=== PATIENT | female | born 1955 | race Caucasian/White ===

== ENCOUNTER 2018-08-29 11:29 | Emergency (ER) | payer MEDICARE ==
[~2018-08-29] VITALS: Ht 160 cm; Wt 59.0 kg
== END 2018-08-29 13:32 | disposition home or self-care (01) ==
LOC: ER 11:29
DX: S89.392A Other physeal fracture of lower end of left fibula, initial encounter for closed fracture (principal); S89.192A Other physeal fracture of lower end of left tibia, initial encounter for closed fracture; Z87.891 Personal history of nicotine dependence; W06.XXXA Fall from bed, initial encounter
CPT/HCPCS: 29515; 73610; 99283-25

== ENCOUNTER 2018-08-31 08:44 | Inpatient (IN) | payer MEDICARE ==
[~2018-08-31] VITALS: Ht 160 cm; Wt 76.8 kg
[2018-08-31 09:08] LABS: Hematocrit 45.1 % (33.0-51.0); Hemoglobin 14.8 g/dL (11.5-16.0); Mean Corpuscular HGB Conc 32.8 g/dL (31.5-36.5); Mean Corpuscular Volume 95 fL (80-100); Mean Platelet Volume 10.1 fL (9.1-12.4); Platelet Count 199 K/mm3 (150-400); RDW Coefficient Variation 12.9 % (11.7-14.2); RDW Standard Deviation 45.1 fL (35.1-46.3); Red Blood Cell Count 4.77 M/mm3 (3.80-5.20); White Blood Cell Count 3.14 K/mm3 (4.00-11.30)
[2018-08-31] MEDS ORDERED: Mobic15 MG PO (09:08)
[2018-08-31] MEDS ORDERED: MORP15ER PO (09:08)
[2018-08-31] MEDS ORDERED: GABA600 PO (09:09)
[2018-08-31] MEDS ORDERED: LIDOCAINE1 EACH (09:09)
[2018-08-31] MEDS ORDERED: Zanaflex4 MG PO (09:09)
[2018-08-31 09:15] LABS: Base Excess Venous -9.4 mmol/L; Bicarbonate Venous 16.5 mmol/L (24.0-30.0); PCO2 Venous 46.2 mmHg (38-42); PO2 Venous 40.9 mmHg (38-42); pH Blood Venous 7.21 (7.34-7.37)
[2018-08-31 09:33] LABS: Albumin, Blood 2.7 g/dL (3.4-5.0); Albumin/Globulin Ratio 0.6 (0.8-1.8); Bilirubin, Total 0.7 mg/dL (0.1-1.0); Bun/Creatinine Ratio 9.9 (12.0-20.0); Calcium, Blood 8.3 mg/dL (8.5-10.1); Creatinine, Blood 2.12 mg/dL (0.40-1.00); Globulin, Blood 4.6 g/dL (2.2-4.0); Potassium, Blood 2.6 mmol/L (3.5-5.5); Total Protein, Blood 7.3 g/dL (6.4-8.2); Troponin I 0.237 ng/mL (0.000-0.040)
[2018-08-31 09:46] LABS: Source, Urine Catheter
[2018-08-31 09:47] LABS: BAND PERCENT MAN 16 % (0-8); BASOPHILS PERCENT MAN 0 % (0-2); EOSINOPHILS PERCENT MAN 0 % (0-6); LYMPHOCYTES ABSOLUTE MAN 1.25 K/mm3 (0.84-5.20); LYMPHOCYTES PERCENT MAN 40 % (21-46); METAMYELOCYTE ABSOLUTE MAN 0.09 K/mm3 (0.00-0.00); METAMYELOCYTE PERCENT MAN 3 % (0-0); MONOCYTES ABSOLUTE MAN 0.12 K/mm3 (0.16-1.47); MONOCYTES PERCENT MAN 4 % (4-13); MYELOCYTE ABSOLUTE MAN 0.06 K/mm3 (0.00-0.00); MYELOCYTE PERCENT MAN 2 % (0-0); SEG NEUTROPHILS PERCENT MAN 35 % (41-73); TOTAL CELLS COUNTED 100
[2018-08-31 09:47] LABS: Influenza A Positive (NEGATIVE); Influenza B Negative (NEGATIVE)
[2018-08-31 09:51] LABS: Appearance, Urine Hazy (Clear); Bilirubin, Urine Neg (Neg); Blood, Urine 5+ (Neg); Color, Urine Yellow (P-Yellow); Glucose Qualitative, Urine 2+ (Neg); Ketones, Urine 2+ (Neg); Leukocyte Esterase, Urine 1+ (Neg); Nitrite, Urine Neg (Neg); Protein, Urine 4+ (Neg); Urobilinogen, Urine NORM (Normal)
[2018-08-31 10:33] LABS: White Blood Cells, Urine 0-2 /hpf (0-5)
[2018-08-31 10:34] LABS: Amorphous Heavy (0-Heavy); Bacteria Not Seen /hpf; Squamous Epithelial Cells Not Seen /hpf (Few)
[2018-08-31 10:36] LABS: U Amphetamine Screen Not Detected; U Barbituate Screen Not Detected; U Benzodiazapine Screen Not Detected; U Buprenorphine Screen Not Detected; U Cannabinoids Screen Not Detected; U Cocaine Screen Not Detected; U Methadone Screen Not Detected; U Methamphetamine Screen Not Detected; U Opiates Screen DETECTED; U Oxycodone Screen Not Detected; U Phencyclidine Screen Not Detected; U Propoxyphene Screen Not Detected
[2018-08-31 10:55] LABS: PCO2 Arterial 41.3 mmHg (35-45); PO2 Arterial 44 mmHg (80-100); pH Blood Arterial 7.23 (7.35-7.45)
[2018-08-31 14:03] LABS: PCO2 Arterial 38.1 mmHg (35-45); PO2 Arterial 107 mmHg (80-100); pH Blood Arterial 7.29 (7.35-7.45)
[2018-08-31 16:23] LABS: Albumin, Blood 1.8 g/dL (3.4-5.0); Anion Gap 10 mmol/L (6-16); Blood Urea Nitrogen 25 mg/dL (8-24); Bun/Creatinine Ratio 11.8 (12.0-20.0); CO2, Blood 19 mmol/L (21-32); Calcium, Blood 6.9 mg/dL (8.5-10.1); Chloride, Blood 111 mmol/L (98-108); Creatinine, Blood 2.11 mg/dL (0.40-1.00); Glomerular Filtration Rate 25 (60-); Glucose, Blood 229 mg/dL (70-99); Phosphorus, Blood 2.5 mg/dL (2.5-4.9); Potassium, Blood 3.9 mmol/L (3.5-5.5); Sodium, Blood 140 mmol/L (136-145)
[2018-08-31 16:25] LABS: International Normalized Ratio 1.36
--- NOTE | 2018-08-31 20:45 | NUR ---
PT ADMITTED TO ICU AT 1230 FROM ER FOR RESP FAILURE W POSSIBLE SEPSIS. DR AGUILAR IN ICU UNIT AND NOTIFIED OF CONSULT. PT ARRIVED ON MECH VENT UNRESPONSIVE AND ON VERSED GTT AT 2, LEVOPHED AT 11MCG TO RIGHT IJ. PUPILS PINPOINT. ACKERMAN TEMP PROBE READ 99. AC 16, TV 350, FIO2 AT 100%, PEEP 10. SKIN INTACT. SOFT CAST TO LEFT LOWER EXTREMITY. CAST REMOVED TO PREFORM ORDERED DOPPLER, CIRC CHECK, AND SKIN CHECK. SKIN UNDER BOOT INTACT. PULSE TO LEFT PT VIA DOPPLER ONLY, UNABLE TO GET DOPPLER OF LEFT DP, DR AGUILAR AT BEDSIDE. LEVOPHED TITATED UP TO 25MCG ALONG WITH VASOPRESSIN GTT TO KEEP MAP >65 FROM ADMIT TO 1335. AROUND 1335 UNABLE TO HEAR MANUAL BP READING, DOPPLER SHOWING BETWEEN 70/D TO 110/D. DR AGUILAR NOTIFIED AND ART LINE PLACED BY DR AGUILAR AT 1515. AT 1515 ART LINE ZEROED AND SHOWING SBP 140'S. LEVOPHED TITRATED DOWN TO 10MCG AND PLACED ON STANBY ALONG WITH VASOPRESSIN AT 1530. PT RECEIVED 2 LITERS BOLUS IN ER, A 3RD LITER OF LR BOLUS WAS STARTED ON ADMIT. PT 4TH BOLUS WAS CHANGED TO 125CC/HR AFTER ART LINE SHOWED SUFFICIANT BP READINGS. PT URINE OUTPUT AVERAGED BETWEEN 10-15CC/HR; DR AGUILAR AWARE. PT TAKEN TO CT FOR CT OF HEAD AFTER BP STABLE. HEAPARIN GTT TO BE STARTED AFTER CT OF HEAD CLEAR. PHARMACY NOTIFIED TO START HEPARIN GTT WELL NIGHT RN. DOPPLER WAS COMPLETED TOWARDS END OF SHIFT AND WAS NEGATIVE FOR CLOTS. OG PLACED ON ADMIT WITH SMALL AMT OF BILE SUCTIONS; OG THEN CLAMPED. PT'S [employer] CAME IN TO SEE PT AROUND 1400. LIMITED HISTORY OBTAINED. KI (GUNJAN) STATED THAT HE AND THE PT LIVED TOGETHER AND THAT HE WAS MORE OF A CARE GIVEN FOR HER SHE WAS VERY DISABLED DUE TO HER BACK PAIN. HE STATED THAT PT C/O BEING UNABLE TWO WALK TO DAYS AGO, AND ON SECOND DAY HE TOOK HER TO ER WHERE SHE WAS DX W LEFT TIB/FIB FX. THIS AM HE FOUND HER MINIMALLY RESPONSIVE AND SOB, AND THEN CALLED EMS. PT HAS ONE CHILD A DAUGHTER WHO LIVES OUT OF STATE AND HAS BEEN NOTIFIED. NUMBER HAS BEEN RECORDED ON [employer] BP DID START TO TREND DOWN TOWARD END OF SHIFT, LEVOPHED RESTARTED AT 2MCG W FARM CONSULTANT AROUND 1900. PT WOKE UP AT 1800, WAS ABLE TO NOD HEAD APPROPRIATELY TO QUESTIONS AND TRACTOR MECHANIC HELPER/FOLLOWING SIMPLE COMMANDS. PT NODED HEAD YES TO PAIN AND WAS TEARFUL. DR AGUILAR NOTIFIED, PROPOFOL STARTED AT 15MCG. FENTANYL ORDERED WELL PRN.
--- NOTE | 2018-09-01 00:29 | NUR ---
PATIENT REMAINS OFF PROPOFOL, SLIGHT SQUEEZE TO HAND BUT NOT ALWAYS TO DIRECTIONS. LEVOPHED AT 5MCG. ART LINE REMAINS IN PLACE WITH GOOD WAVEFORM. MANAGER MULTICULTURAL OCCASIONALLY SHOWING IRREGULAR RHYTHM, WITH PAC'S. TYLENOL GIVEN FOR INCREASED TEMP.
[2018-09-01 04:37] LABS: BASOPHILS ABSOLUTE AUTO 0.03 K/mm3 (0.00-0.23); BASOPHILS PERCENT AUTO 1 % (0-2); Hematocrit 31.2 % (33.0-51.0); Hemoglobin 10.3 g/dL (11.5-16.0); Mean Corpuscular HGB 31.1 pg (26.0-34.0); Mean Corpuscular Volume 94 fL (80-100); Platelet Count 108 K/mm3 (150-400); RDW Coefficient Variation 13.4 % (11.7-14.2); RDW Standard Deviation 46.7 fL (35.1-46.3); Red Blood Cell Count 3.31 M/mm3 (3.80-5.20); White Blood Cell Count 3.08 K/mm3 (4.00-11.30)
[2018-09-01 04:41] LABS: EOSINOPHILS ABSOLUTE AUTO 0.01 K/mm3 (0.00-0.68); EOSINOPHILS PERCENT AUTO 0 % (0-6); IMMATURE GRAN ABSOLUTE AUTO 0.04 K/mm3 (0.00-0.10); IMMATURE GRAN PERCENT AUTO 1 % (0-1); LYMPHOCYTES ABSOLUTE AUTO 0.89 K/mm3 (0.84-5.20); LYMPHOCYTES PERCENT AUTO 29 % (21-46); MONOCYTES ABSOLUTE AUTO 0.05 K/mm3 (0.16-1.47); MONOCYTES PERCENT AUTO 2 % (4-13); NEUTROPHILS ABSOLUTE AUTO 2.06 K/mm3 (1.96-9.15); NEUTROPHILS PERCENT AUTO 67 % (41-73)
[2018-09-01 04:50] LABS: Calcium, Blood 8.1 mg/dL (8.5-10.1); Creatinine, Blood 2.92 mg/dL (0.40-1.00); Magnesium, Blood 1.5 mg/dL (1.6-2.4); Phosphorus, Blood 3.6 mg/dL (2.5-4.9); Potassium, Blood 4.3 mmol/L (3.5-5.5)
[2018-09-01 04:55] LABS: BAND PERCENT MAN 37 % (0-8); BASOPHILS PERCENT MAN 0 % (0-2); EOSINOPHILS PERCENT MAN 0 % (0-6); LYMPHOCYTES ABSOLUTE MAN 1.04 K/mm3 (0.84-5.20); LYMPHOCYTES PERCENT MAN 34 % (21-46); METAMYELOCYTE ABSOLUTE MAN 0.24 K/mm3 (0.00-0.00); METAMYELOCYTE PERCENT MAN 8 % (0-0); MONOCYTES ABSOLUTE MAN 0.09 K/mm3 (0.16-1.47); MONOCYTES PERCENT MAN 3 % (4-13); NEUTROPHILS ABSOLUTE MAN 1.69 K/mm3 (1.96-9.15); SEG NEUTROPHILS PERCENT MAN 18 % (41-73); TOTAL CELLS COUNTED 100
[2018-09-01 05:45] LABS: PCO2 Arterial 32.4 mmHg (35-45); PO2 Arterial 75.3 mmHg (80-100)
--- NOTE | 2018-09-01 06:53 | NUR ---
SUMMARY PATIENT REMAINS INTUBATED WITH PROPOFOL OFF AT THIS TIME. PATIENT CALM FOLLOWING SIMPLE DIRECTIONS, OPENS EYES SLIGHTLY. FALLING BACK TO SLEEP WHEN UNDISTURBED. VENT SET AT AC 16, TV 350, PEEP 10, FIO2 65%. ART LINE TO RIGHT GROIN WITH GOOD WAVEFORM, LEVOPHED TITRATED T/O NIGHT FOR HYPOTENSION, NOW AT 6 MCG. HEPARIN DRIP WAS OFF FOR 2 HRS PER PHARMACY NOW INFUSING 11 UNITS. SPLINT REMAINS IN PLACE BUT OPEN.
--- NOTE | 2018-09-01 09:25 | NUR ---
PT ASSESSED THIS AM AT 0730. PT SLEEPING ON MECH VENT. PT AROUSES TO TOUCH AND NOXIOUS STIMULI, FOLLOWS DIRECTIONS, SLIGHTLY AGITATED, TEARFUL, NODS HEAD YES TO ANXIETY AND PAIN. PROPOFOL STARTED AT 15MCG. LEVOPHED DECREASED FROM 6MCG TO 4MCG. OPENED SOFT CAST TO LEFT LOWER EXTREMETY. SOME EDEMA NOTED TO LEFT FOOT 1+. PULSES IMPROVED TO BLE. 1+ DP/PT BILAT. BLE PINK AND WARM W GOOD CAP REFILL. PT'S EXHUSBAND IN TODAY AND GIVEN UPDATE. DR BURKS IN TODAY AND GIVEN UPDATE. ORTHO AND CARDIOLOGY CONSULTED. MAG REPLACED. ECHO AND RENAL DOPPLER COMPLETED. DR AGUILAR IN TO SE PT THIS AM. NOTIFIED OF POS BLOOD CX, UPDATED, AND NOTIFIED OF U/O AT 10CC/HR. SEE NEW ORDERS.
--- NOTE | 2018-09-01 11:17 | NUR ---
DR RODRIGUEZ'S OFFICE CALLED FR CONSULT. SPOKE W DR QUINTANA DIRECTLY FOR CARDIOLOGY CONSULT. 2ND SET OF BLOOD CX POSITIVE;DR AGUILAR NOTIFIED; VANCO PER PHARMACY ORDERED
--- NOTE | 2018-09-01 12:31 | NUR ---
DR RODRIGUEZ IN TO SEE PT. XAVIRE WRAP PLACED OVER SPLINT. PT WILL REQUIRE SURGERY WITHIN 2-3 WEEKS WHEN MEDICALLY STABLE PER MD.
--- NOTE | 2018-09-01 13:45 | NUR ---
DR QUINTANA IN TO SEE PT, EKG ORDERED. WILL MANAGE MEDICALLY FOR NOW.
--- NOTE | 2018-09-01 14:00 | NUR ---
CRITICAL HIGH PTT CALLED TO PATRICK/PHARMACY. HEPARIN DECREASED TO 10 UNITS/KG/HR.
--- NOTE | 2018-09-01 15:01 | NUR ---
PT TRANSFERED TO PCU 5 WITH HOME VENT ON 3L O2 BLEED IN. LEFT HAND IV DC'D; NOT PATENT. FRANCA IV PATENT AND FLUSHED. URINE EMPTIED AND CHARTED. PT GIVEN ATIVAN 1MG PO IN ATICIPATION OF INNER CANNULA CHANGE TO BE DONE BY RT SHORTLY. REPORT GIVEN TO BETSY KIRSHNAMURTHY
--- NOTE | 2018-09-01 16:08 | NUR ---
PT URINE OUTPUT SLOWLY IMPROVING. LEVOPHED PLACED ON STANBY FOR SBP 120-130'S KI AT BEDSIDE, UPDATED.
--- NOTE | 2018-09-01 20:45 | NUR ---
PATIENT INTUBATED AND SEDATED WITH PROPOFOL. VENT SET AT AC 16, TV 350, PEEP 10, FIO2 45%. OG IN PLACE WITH TUBE FEEDING AT GOAL RATE OF 30/HR WITH RESIDUAL OF 111 CC REFED, WILL CONTINUE TO MONITOR RESIDUAL. PATIENT KEEPS EYES CLOSED, FOLLOWING SIMPLE DIRECTIONS, GRIMACING WITH ORAL CARE AND REPOSITIONING, RELAXING WHEN UNDISTURBED. BILAT WRIST RESTRAINTS REMAIN IN PLACE DUE TO UNPREDICTABLE SEDATION AND BEHAVIOR. PATIENT CONTINUES IN SINUS TACH UP TO 130'S AFTER REPOSITIONING OCCASIONALLY HAVING PAC. LEVOPHED REMAINS OFF. ART LINE IN PLACE TO RIGHT GROIN WITH GOOD WAVE FORM. LINE ZEROED.
[2018-09-02 04:45] LABS: Hematocrit 24.7 % (33.0-51.0); Hemoglobin 8.3 g/dL (11.5-16.0); Mean Corpuscular HGB 31.6 pg (26.0-34.0); Mean Corpuscular HGB Conc 33.6 g/dL (31.5-36.5); Mean Corpuscular Volume 94 fL (80-100); Mean Platelet Volume 10.7 fL (9.1-12.4); Platelet Count 83 K/mm3 (150-400); RDW Coefficient Variation 13.8 % (11.7-14.2); RDW Standard Deviation 47.7 fL (35.1-46.3); Red Blood Cell Count 2.63 M/mm3 (3.80-5.20); White Blood Cell Count 2.87 K/mm3 (4.00-11.30)
[2018-09-02 05:04] LABS: PCO2 Arterial 34.4 mmHg (35-45); PO2 Arterial 76.4 mmHg (80-100); pH Blood Arterial 7.31 (7.35-7.45)
[2018-09-02 05:05] LABS: Albumin, Blood 1.4 g/dL (3.4-5.0); Anion Gap 11 mmol/L (6-16); Blood Urea Nitrogen 44 mg/dL (8-24); Bun/Creatinine Ratio 12.2 (12.0-20.0); CO2, Blood 18 mmol/L (21-32); Calcium, Blood 8.2 mg/dL (8.5-10.1); Chloride, Blood 108 mmol/L (98-108); Creatinine, Blood 3.62 mg/dL (0.40-1.00); Glomerular Filtration Rate 13 (60-); Glucose, Blood 154 mg/dL (70-99); Magnesium, Blood 1.7 mg/dL (1.6-2.4); Phosphorus, Blood 3.4 mg/dL (2.5-4.9); Potassium, Blood 4.4 mmol/L (3.5-5.5); Sodium, Blood 137 mmol/L (136-145); Vancomycin, Random 14.3 ug/mL
[2018-09-02 05:26] LABS: BAND PERCENT MAN 9 % (0-8); BASOPHILS PERCENT MAN 0 % (0-2); EOSINOPHILS ABSOLUTE MAN 0.02 K/mm3 (0.00-0.68); EOSINOPHILS PERCENT MAN 1 % (0-6); LYMPHOCYTES ABSOLUTE MAN 0.63 K/mm3 (0.84-5.20); LYMPHOCYTES PERCENT MAN 22 % (21-46); METAMYELOCYTE ABSOLUTE MAN 0.02 K/mm3 (0.00-0.00); METAMYELOCYTE PERCENT MAN 1 % (0-0); MONOCYTES ABSOLUTE MAN 0.11 K/mm3 (0.16-1.47); MONOCYTES PERCENT MAN 4 % (4-13); MYELOCYTE ABSOLUTE MAN 0.02 K/mm3 (0.00-0.00); MYELOCYTE PERCENT MAN 1 % (0-0); NEUTROPHILS ABSOLUTE MAN 2.03 K/mm3 (1.96-9.15); SEG NEUTROPHILS PERCENT MAN 62 % (41-73); TOTAL CELLS COUNTED 100
[2018-09-02 05:30] LABS: Troponin I 0.508 ng/mL (0.000-0.040)
--- NOTE | 2018-09-02 05:56 | NUR ---
SUMMARY PATIENT REMAINS INTUBATED AND SEDATED WITH PROPOFOL AT 15 MCG. PATIENT AWAKENS TO STIMULI, FOLLOWING SIMPLE DIRECTIONS. ART LINE REMAINS IN PLACE TO RIGHT GROIN WITH GOOD WAVEFORM T/O NIGHT. PATIENT REMAINS OFF LEVOPHED T/O THE NIGHT. VENT SETTINGS REMAIN UNCHANGED T/O NIGHT. PATIENT INCONT OF LARGE LIQUID BM X1 DURING THE NIGHT.
--- NOTE | 2018-09-02 08:00 | NUR ---
ASSUMED CARE PT. REMAINS SEDATED AND INTUBATED THIS AM. PT. VENT SETTINGS OF AC 16, TV 350, PEEP 10, 50% FIO2. PT. HAS FACIAL GRIMACE WITH REPOSITIONING. PT. HR IN THE 150S UP TO 170S THIS AM, DR. LINARES NOTIFIED OF THIS. PT. HAS ART LINE IN RIGHT GROIN; ALONG WITH CENTRAL LINE AND SAFESET IN PLACE TO RIGHT IJ. PT. CONTINUES ON HEPARIN GTT SEE FLOWSHEET FOR TITRATIONS OF PROPOFOL AND ON LR 125ML/HR. MED FOR PAIN. BILAT WRIST RESTRAINTS IN PLCE ALONG WITH ACKERMAN DRAINING TO GRAVITY. PT. HAS SOFT CAST TO LEFT LEFT; PULSES NOTED TO DISTAL TOES.
--- NOTE | 2018-09-02 09:46 | NUR ---
LOW BP/ ELEVATED HR SPOKE WITH DR. LINARES AT THIS TIME LEVOPHED GTT RESTARTED; INFUSING AT 6MCG/KG/MIN.
--- NOTE | 2018-09-02 10:48 | NUR ---
PT CONTINUES WITH ELEVATED HR IRREGULAR AND IN THE 140S-150S. EKG DONE.
--- NOTE | 2018-09-02 12:00 | NUR ---
AMIODARONE GTT STARTED BOLUS GIVEN THEN INFUSION STARTED PER DR. SORENSEN.
--- NOTE | 2018-09-02 17:47 | NUR ---
SHIFT SUMMARY PT. REMAINS SEDATED AND INTUBATED T/O SHIFT. CURRENTLY ON AMIO GTT AT 1MG/MIN, REMAINS IN AFIB. PT. HEPARIN GTT STOPPED THIS SHIFT FOR DROP IN PLATELETS AND WILL REASSESS TOMORROW TO START SUBCU HEPARIN PER DR. LINARES. PT. STARTED ON LEVOPHED TODAY FOR HYPOTENSION. ART LINE AND CENTRAL LINE REMAIN IN PLACE. TF RESIDUALS OF LOW 100S TODAY REFED. PT. ACKERMAN REMAINS IN PLACE WITH 300CC OUTPUT TODAY. VSS AT THIS TIME. REPORT TO ONCOMING RN.
--- NOTE | 2018-09-02 19:15 | NUR ---
ASSUMED PT CARE; BEDSIDE REPORT GIVEN PT INTUBATED AND SEDATED; PROPOFOL AT 35MCG/KG. VENT SETTINGS: AC 16; TV 350; FIO2 50%; PEEP 10 WITH OXYGEN SATURATIONS 93%. PT APPEARS VERY EDEMATOUS WITH MINIMAL PITTING EDEMA, BUT MAINLY TIGHT SKIN; OLD VENIPUNCTURE SITES APPEAR TO BE WEEPING, WELL OLD ABRASION TO RIGHT INNER ANKLE ALSO APPEARS TO BE WEEPING. PIVOT 1.5 INFUSING AT GOAL OF 30CC/HR. ACKERMAN CATH IS PATENT AND DRAINING TO GRAVITY; CLEAR, YELLOW URINE. RIGHT FEMORAL ARTERIAL LINE DRESSING APPEARS CDI; SITE WNL. CENTRAL LINE TO RIGHT IJ INFUSING PROPOFOL, NS TKO, AND AMIODARONE AT 0.5MG/MIN. BILAT TIBIAL AND PEDAL PULSES ARE FAINT, BUT PALPABLE. SOFT CAST REMAINS INTACT TO LEFT LOWER EXTREMITIES, WHICH IS ALSO ELEVATED ON PILLOWS. PT APPEARS COMFORTABLE AT THIS TIME.
[2018-09-03 03:36] LABS: Hematocrit 26.5 % (33.0-51.0); Hemoglobin 8.7 g/dL (11.5-16.0); Mean Corpuscular HGB Conc 32.8 g/dL (31.5-36.5); Mean Corpuscular Volume 94 fL (80-100); Mean Platelet Volume 11.1 fL (9.1-12.4); NRBC ABSOLUTE 0.02 K/mm3 (0.00-0.02); NRBC Auto 0.2 /100 WBC (0.0-0.2); Platelet Count 81 K/mm3 (150-400); RDW Coefficient Variation 14.5 % (11.7-14.2); RDW Standard Deviation 50.3 fL (35.1-46.3); Red Blood Cell Count 2.81 M/mm3 (3.80-5.20); White Blood Cell Count 8.08 K/mm3 (4.00-11.30)
[2018-09-03 03:57] LABS: Alanine Aminotransfer (ALT/SGP 18 U/L (12-78); Albumin, Blood 1.4 g/dL (3.4-5.0); Albumin/Globulin Ratio 0.4 (0.8-1.8); Alk Phos 51 U/L (50-136); Anion Gap 10 mmol/L (6-16); Aspartate Aminotrans (AST/SGOT 19 U/L (12-37); Bilirubin, Total 0.7 mg/dL (0.1-1.0); Blood Urea Nitrogen 57 mg/dL (8-24); Bun/Creatinine Ratio 15.1 (12.0-20.0); CO2, Blood 20 mmol/L (21-32); Calcium, Blood 8.4 mg/dL (8.5-10.1); Chloride, Blood 105 mmol/L (98-108); Creatinine, Blood 3.78 mg/dL (0.40-1.00); Globulin, Blood 3.8 g/dL (2.2-4.0); Glomerular Filtration Rate 13 (60-); Glucose, Blood 126 mg/dL (70-99); Magnesium, Blood 2.3 mg/dL (1.6-2.4); Phosphorus, Blood 3.6 mg/dL (2.5-4.9); Potassium, Blood 4.3 mmol/L (3.5-5.5); Sodium, Blood 135 mmol/L (136-145); Total Protein, Blood 5.2 g/dL (6.4-8.2); Vancomycin, Random 21.9 ug/mL
[2018-09-03 04:25] LABS: BAND PERCENT MAN 16 % (0-8); BASOPHILS PERCENT MAN 0 % (0-2); EOSINOPHILS PERCENT MAN 0 % (0-6); LYMPHOCYTES % ATYPICAL MANUAL 1 % (0-0); LYMPHOCYTES ABSOLUTE MAN 0.72 K/mm3 (0.84-5.20); LYMPHOCYTES PERCENT MAN 8 % (21-46); METAMYELOCYTE ABSOLUTE MAN 0.16 K/mm3 (0.00-0.00); METAMYELOCYTE PERCENT MAN 2 % (0-0); MONOCYTES ABSOLUTE MAN 0.32 K/mm3 (0.16-1.47); MONOCYTES PERCENT MAN 4 % (4-13); MYELOCYTE ABSOLUTE MAN 0.08 K/mm3 (0.00-0.00); MYELOCYTE PERCENT MAN 1 % (0-0); NEUTROPHILS ABSOLUTE MAN 6.78 K/mm3 (1.96-9.15); SEG NEUTROPHILS PERCENT MAN 68 % (41-73); TOTAL CELLS COUNTED 100
--- NOTE | 2018-09-03 05:32 | NUR ---
END OF SHIFT SUMMARY PT HAS REMAINED INTUBATED AND SEDATED. PROPOFOL AT 15MCG/KG. VENT SETTINGS: AC 16, TV 350; FIO2 45%; PEEP 10; OXYGEN SATURATIONS 94%. DURING SEDATION VACATION PT DID NOT OPEN EYES, FOLLOW COMMANDS, OR MOVE ANY EXTREMTIIES. FACIAL GRIMACING NOTED TO PAINFUL STIMULI. LUNG SOUNDS HAVE FLUCTUATED FROM RALES AND WHEEZING TO CLEAR AND DIM T/O SHIFT. PT HAS REMAINED IN AFIB WITH RVR; AMIO GTT CONTINUES AT 0.5MG/MIN. LEVO GTT REMAINS OFF SINCE 414 WITH MAP MAINTAINING GREATER THAN 65. RIGHT FEMORAL ARTERIAL LINE SITE REMAINS WNL; DRESSING CDI. PIVOT 1.5 WAS INITIALLY INFUSING AT GOAL OF 30CC/HR UPON ASSUMING PT CARE; HOWEVER, FIRST RESIDUAL CHECK AT 1999 PT HAD A 350CC RESIDUAL; REINSTILLED AND TF HELD FOR TWO HOURS. RECHECKED AT 2200; WITH RESIDUAL 300CC; REINSTILLED AND CONTINUED TO HOLD TF. AT 0000 RESIDUAL WAS 200; TF RESTARTED AT 15MLS/HR. RECHECKED RESIDUAL AGAIN AT 0400 WITH RESIDUAL AT 300; TURNED TF OFF ALL TOGETHER. PT HAD ONE SMALL, LOOSE, BROWN BM THIS SHIFT; HELD COLACE AT BEGINNING OF SHIFT. ACKERMAN REMAINS PATENT AND DRAINING TO GRAVITY; TOTAL OUTPUT 400CC. SOFT SPLINT REMAINS INTACT TO LEFT LOWER EXTREMITY; PULSES ARE PALPABLE AND FAINT; EXTREMITY REMAINS ELEVATED ON PILLOW. PT REMAINS VERY EDEMATOUS; WEEPING NOTED THROUGH SOME OLD VENIPUNCTURE SITES; MOSTLY NON-PITTING; SKIN IS VERY TIGHT. REPOSITIONED FOR COMFORT T/O SHIFT.
--- NOTE | 2018-09-03 07:54 | NUR ---
ASSUMED CARE OF PT THIS AM PT. REMAINS SEDATED AND INTUBATED. AC 16,350,45%, PEEP 10. PT. ONLY GRIMACES TO PAIN, PROPOFOL INFUSING AT 15MCG/KG/MIN. PLACED ON STAND BY AT THIS TIME FOR SEDATION VACATION. PT. LS COARSE T/O WITH MINIMAL SECRETIONS FROM ETT. PT REMAINS IN AFIB THIS AM WITH RATE IN THE 90S-LOW 100S. AMIO GTT INFUSING AT 0.5MG/MIN. LEVOPHED REMAINS ON STAND BY. PT. CONTINUES WITH OG IN PLACE TUBE FEEDS ON STANDBY PER SUPERVISOR GROVE FOR HIGH RESIDUALS. CURRENT RESIDUAL OF 150ML, REFED. PT. CONTINUES WITH CENTRAL LINE AND ART. LINE IN PLACE WITH DRESSINGS CDI. LIQUID STOOL THIS AM- STOOL SAMPLE SENT FOR CDIFF AND RECTAL TUBE PLACED. ACKERMAN REMAINS DRAINING TO GRAVITY. AFEBRILE AT THIS TIME. AT BEDSIDE, UPDATED ON PT CONDITION. BILAT WRIST RESTRAINTS IN PLACE FOR SAFETY.
[2018-09-03 09:00] LABS: C DIFFICILE BY DNA AMP Positive (Negative)
--- NOTE | 2018-09-03 10:04 | NUR ---
CDIFF PT. POSITIVE FOR CDIFF; DR. LINARES NOTIFIED. ANTIBIOTICS TO BE STARTED. AT THIS TIME CONTINUE TO HOLD HEPARIN. PLACE SCD TO RIGHT LEG PER DR. SORENSEN.
--- NOTE | 2018-09-03 11:24 | NUR ---
UPDATE PT. PEEP DECREASED TO 8, WITH FIO2 OF 45% AND PT TOLERATING WELL. REMAINS OFF OF SEDATION AT THIS TIME. NOT FOLLOWING COMMANDS, NO SPONT MOVEMENT NOTED IN EXTREMITIES ONLY FACIAL GRIMACE WITH REPOSITIONING. PT. REMAINS ON AMIO GTT TO BE TURNED OFF AT 1300 AND TRANSITIONED TO AMIODARONE VIA OG TUBE. SCD PLACED TO RIGHT LEG PER ORDER. RESIDUAL CHECKED AT THIS TIME AND IS CURRENTLY 80ML. TUBE FEEDING PIVOT 1.5 STARTED AT 10ML/HR.
--- NOTE | 2018-09-03 16:13 | NUR ---
INCEASING FI02 PT. SPO2 NOTED TO BE 88-89% EVEN WITH GRADUALLY INCREASING FIO2 (NOW UP TO 60%). PT. PEEP RETURNED TO 10 AT THIS TIME. WILL CONTINUE TO MONITOR.
--- NOTE | 2018-09-03 17:46 | NUR ---
SHIFT SUMMARY PT REMAINS INTUBATED AND OFF OF SEDATION T/O SHIFT WITH NO RESPONSE OTHER THAN FACIAL GRIMACE T/O SHIFT. NO SPONT. MOVEMENT NOTED TO EXTREMITIES. ONE DOSE OF FENTANYL THIS SHIFT FOR FACIAL GRIMACE AND ELEVATED BP AFTER REPOSITIONING. RECTAL TUBE PLACED THIS SHIFT FOR LIQUID STOOL POSITIVE FOR CDIFF. PT. STARTED ON ANTIBIOTICS. TF RESTARTED WITH PIVOT 1.5 AT 10ML/HR. PT. VSS T/O SHIFT. LEVOPHED REMAINS ON STAND BY. AMIO GTT PLACED ON STAND BY AT 1300 TODAY AND PO AMIODARONE STARTED. PEEP INCREASED BACK TO PEEP OF 10 DUE TO DESATURATION T/O DAY. REMAINS OFF PROPOFOL AT THIS TIME. REPORT TO BARBARA KRISHNAMURTHY
--- NOTE | 2018-09-03 20:17 | NUR ---
HTN/RR 30'S: RN TO BEDSIDE FOR PT SUDDEN HTN. PT NOT RESPONDING TO NOXIOUS STIMULI BUT HAS SEEM TO BE WHERE PT HAS BEEN T/O TODAY. PT RR IN THE 30'S AND BP 190'S/80'S AND HR 130'S. PT ON CHRONIC PAIN MEDICATION AT HOME FOR BACK PAIN. FENTANYL 50mcg IV GIVEN WITH PT QUICKLY APPEARING TO RELAX MORE. CURRENT BP 140'S/70'S AND HR 112. WILL CONTINUE TO MONITOR.
--- NOTE | 2018-09-03 20:21 | NUR ---
TF ON HOLD: RESIDULE 80+ BUT HARD TO WITHDRAW SINCE FLUID IS A BROWISH/SEDIMENT FLUID (POSSIBLY FROM BANATROL AT 1500).
--- NOTE | 2018-09-03 21:01 | NUR ---
ABDOMEN FIRM/DISTENDED; TF ON HOLD.
--- NOTE | 2018-09-04 00:25 | NUR ---
TF RESUMED: RESIDUAL APPRX 120cc OF ALMOST CLEAR BROWN LIQUID C/ LESS GRIT/SEDIMENT NOTED. TF RESTARTED AT THE 10cc/hr RATE AND BANATROL GIVEN PER DIRECTIONS.
--- NOTE | 2018-09-04 00:30 | NUR ---
DR. LINARES NOTIFIED: AT APPRX 2340 DR. LINARES NOTIFIED OF PT'S LS INCREASINGLY MORE CRACKLES, COARSENESS AND NEED FOR INCREASED Fi02. RT AT BEDSIDE AT THAT TIME FOR CPT. NEW ORDERS GIVEN TO INCREASE PEEP TO 12; BNP STAT; GIVE LASIX 60 mg X1 NOW. WHEN SATS INCREASE, DECREASE PEEP BACK TO 10. PACO RT INFORMED, PEEP INCREASED TO 12. CURRENT VENT SETTINGS AC 16; Vt 350; PEEP 12; FiO2 100%; SATS 92%. WILL GIVE LASIX ONCE BNP RESULTS DONE.
--- NOTE | 2018-09-04 01:10 | NUR ---
BNP 1619/LASIX 60mg GIVEN. PT REMAINS UNRESPONSIVE OFF SEDATION. KYLER 3mm. LS COARSE T/O VENT SETTINGS CURRENTLY AC 16, Vt350, PEEP 12, FiO2 100%. AFIB HR 120'S. ABD MORE SOFT THAN START OF SHIFT. PEDAL PULSES + X 2. LLE WARM, DRY, CAP REFIL <2.
[2018-09-04 04:42] LABS: Hematocrit 25.9 % (33.0-51.0); Hemoglobin 8.7 g/dL (11.5-16.0); Mean Corpuscular HGB 30.7 pg (26.0-34.0); Mean Corpuscular HGB Conc 33.6 g/dL (31.5-36.5); Mean Corpuscular Volume 92 fL (80-100); Mean Platelet Volume 12.1 fL (9.1-12.4); NRBC ABSOLUTE 0.17 K/mm3 (0.00-0.02); Platelet Count 59 K/mm3 (150-400); RDW Standard Deviation 50.7 fL (35.1-46.3); Red Blood Cell Count 2.83 M/mm3 (3.80-5.20); White Blood Cell Count 16.98 K/mm3 (4.00-11.30)
[2018-09-04 04:58] LABS: Alanine Aminotransfer (ALT/SGP 24 U/L (12-78); Albumin, Blood 1.4 g/dL (3.4-5.0); Albumin/Globulin Ratio 0.3 (0.8-1.8); Alk Phos 95 U/L (50-136); Anion Gap 11 mmol/L (6-16); Aspartate Aminotrans (AST/SGOT 34 U/L (12-37); Bilirubin, Total 0.7 mg/dL (0.1-1.0); Blood Urea Nitrogen 73 mg/dL (8-24); Bun/Creatinine Ratio 17.8 (12.0-20.0); CO2, Blood 19 mmol/L (21-32); Calcium, Blood 8.6 mg/dL (8.5-10.1); Chloride, Blood 105 mmol/L (98-108); Creatinine, Blood 4.11 mg/dL (0.40-1.00); Globulin, Blood 4.2 g/dL (2.2-4.0); Glomerular Filtration Rate 12 (60-); Glucose, Blood 98 mg/dL (70-99); Magnesium, Blood 2.5 mg/dL (1.6-2.4); Potassium, Blood 4.3 mmol/L (3.5-5.5); Sodium, Blood 135 mmol/L (136-145); Total Protein, Blood 5.6 g/dL (6.4-8.2); Vancomycin, Random 18.7 ug/mL
[2018-09-04 05:17] LABS: PCO2 Arterial 48.4 mmHg (35-45); PO2 Arterial 83.4 mmHg (80-100); pH Blood Arterial 7.17 (7.35-7.45)
[2018-09-04 05:17] LABS: BAND PERCENT MAN 20 % (0-8); BASOPHILS PERCENT MAN 0 % (0-2); EOSINOPHILS PERCENT MAN 0 % (0-6); LYMPHOCYTES ABSOLUTE MAN 0.84 K/mm3 (0.84-5.20); LYMPHOCYTES PERCENT MAN 5 % (21-46); METAMYELOCYTE ABSOLUTE MAN 0.33 K/mm3 (0.00-0.00); METAMYELOCYTE PERCENT MAN 2 % (0-0); MONOCYTES ABSOLUTE MAN 0.67 K/mm3 (0.16-1.47); MONOCYTES PERCENT MAN 4 % (4-13); NEUTROPHILS ABSOLUTE MAN 15.11 K/mm3 (1.96-9.15); SEG NEUTROPHILS PERCENT MAN 69 % (41-73); TOTAL CELLS COUNTED 100
--- NOTE | 2018-09-04 05:42 | NUR ---
DR. LINARES NOTIFIED: CRITICAL RESULT ABG pH 7.17 GIVEN. UPDATED ON PT STATUS AND LABS. NEW ORDERS TO START BICARB GTT AT 75mL/hr; REPEAT ABG AT 0800; AND DR. CONSULT FOR DR. JEWELL.
--- NOTE | 2018-09-04 06:04 | NUR ---
DR. JEWELL NOTIFIED: PHONE ORDERS AND REPEATED: GIVE ONE AMP OF BICARB NOW X1 PRIOR TO STARTING BICARB DRIP; RENAL PANEL, MG+, H+h, CK, URIC ACID IN THE A.M; ARINESP 60mcg SQ EVERY OTHER WEEK (HOLD FOR HCT >32). CONTINUE REPEAT ABG [id number].
[2018-09-04 07:28] LABS: PCO2 Arterial 37.6 mmHg (35-45); PO2 Arterial 95.4 mmHg (80-100); pH Blood Arterial 7.23 (7.35-7.45)
--- NOTE | 2018-09-04 07:30 | NUR ---
ASSUMED CARE OF PATIENT; SEE ASSESSMENT CHARTING FOR DETAILS. PATIENT REMAINS NON-RESPONSIVE, EVEN TO PAINFUL STIMULI. EYES RESPOND SLUGGISHLY BUT EQUALLY AT 3MM. LUNGS COARSE T/O; REMAINS ON VENTILATOR WITH SETTINGS: A/C 16, TV 350, PEEP 12 AND FIO2 100%. MONITOR REMAINS ATRIAL FIB WITH RATES 112 TO 130/'S; SBP ADEQUATE AND PATIENT REMAINS AFEBRILE. OGT INFUSING WITH PIVOT 1.5 AT 10ML/HR; GOAL IS 20ML/HR. RESIDUAL IS 140ML OF BROWN TO GREEN/GRAINY FLUID. ACKERMAN DRAINING SCANT AMOUNT OF MED. YELLOW URINE. DR. JEWELL ORDERED NAHCO3 1 AMP (RECENTLY GIVEN BY NIGHTSWYFT RN) AND THEN DRIP TO START AT 75ML/HR. SCD TO RLE AND SOFT SPLINT TO LLE (CALF) D/T TIB/FIB FX.
--- NOTE | 2018-09-04 10:00 | NUR ---
SUDDEN DROP OF OXYGEN TO LOW 70'S; SUCTIONED BUT NO SECRETIONS; FIO2 HAD BEEN TITRATED DOWN TO 80% BUT REQUIRING ADVANCEMENT TO 100%, AGAIN. DR. AGUILAR CAME BY AND ADJUSTED VENT TO P/S 15 WITH RATE 20; PEEP UP TO 15; SEE ORDERS/CHANGES. HR A-FIB WITH RVR; RATE STAYING OVER 130'S; SBP 150'S TO 170'S; AMIODARONE BOLUS OF 150MG GIVEN AND THEN DRIP STARTED AT 1MG/MIN; SEE ORDERS. RN GAVE 50MCG OF FENTANYL IVT D/T INCREASED AND LABORED RESPIRATIONS WELL SOME FURROWING OF BROW.
--- NOTE | 2018-09-04 11:30 | NUR ---
VENT SETTINGS CHANGED BY DR. AGUILAR; CURRENTLY ON PEEP 20, FIO2 100%, A/C 20 AND P/S 15. BIOX 81%; PHYSICIAN CONSIDERING "PRONING" PATIENT IF BIOX DOESN'T TURN AROUND TO ABOUT 90% IN THE NEXT HOUR.
[2018-09-04 16:25] LABS: Base Excess Venous -7.1 mmol/L; Bicarbonate Venous 18.7 mmol/L (24.0-30.0); PCO2 Venous 53.8 mmHg (38-42)
--- NOTE | 2018-09-04 17:22 | NUR ---
SUMMARY: SPOUSE IN/OUT T/O THE DAY; DR. AGUILAR SPOKE TO HIM, AGAIN, THIS EVENING (AROUND 1645). OVERALL STATUS BETTER THIS EVENING COMPARED TO AM. HR LOW 100'S AND SOMETIMES 90'S. SBP 90'S; MAP STAYING AROUND 65; RN TO RESUME LEVOPHED DRIP IF MAP STARTS DROPPING BELOW 65. PROPOFOL DRIP AT 10MCG/KG/MIN AND NAHCO3 DRIP REMAINS AT 75/HR. VBG DRAWN AROUND 1600 SHOWED PH OF 7.20; DR. AGUILAR DOES NOT WISH TO MAKE ADDITIONAL CHANGES. DID REDUCE FIO2 TO 90% AROUND 1500. 190 ML. OF MED. YELLOW URINE FROM ACKERMAN; SMALL AMOUNT OF STOOL NOTED IN FLEXISEAL. DAUGHTER CALLED EARLIER IN DAY AND AN UPDATE GIVEN BY RN; PLANS TO ARRIVE TOMORROW.
--- NOTE | 2018-09-04 17:33 | NUR ---
called by ICU nursing to help with contacting family. pt on hig ventilatory support and sats dropping review of patient with intesivist. Permission to call to update on change in status and ask if he wants CPR and full treatment. Direct conversation with about tpotential asked what their belief and wishes were. He stated that she would want full treatment and he feels full treatment is best and what his duaghter would want. Reviewed his wishes in three differnt ways. Advised that if she experienced cardiac arrest outcome would very probably be poor or she would not survive. He displayed understanding and accepted the risk. He is waiting his daughter and they will discuss with physician what plan they sould take. will meet with family to review her past history and comprensive assessment of her health the past few months
--- NOTE | 2018-09-04 18:40 | NUR ---
DR. AGUILAR REDUCED FIO2 TO 80% AT THIS TIME; NO OTHER VENT. CHANGES.
--- NOTE | 2018-09-04 19:00 | NUR ---
REPORT TO RAGHU OLIVIA. DR. JEWELL PUTTING IN NEW ORDERS; THIS RN WILL T/C AND DISCUSS CHANGES.
--- NOTE | 2018-09-04 19:15 | NUR ---
T/C TO DR. JEWELL; ONLY 1 AMP NAHCO3 TO BE GIVEN (DUPLICATE ORDER ENTERED) AND NAHCO3 DRIP RATE TO REMAIN AT 75ML/HR.
--- NOTE | 2018-09-04 20:00 | NUR ---
ASSUMED CARE BEDSIDE REPORT RECIEVED. PT IS INTUBATED AND RESTING IN BED QUIETLY. PT IS UNAROUSEABLE AND NOT RESPONSIVE TO NOXIOUS STIMULI. PT FURROWS BROW WITH ORAL CARE. PROPOFOL AT 10 MCG/KG/MIN. BICARB AT 75 ML/HR. AMIODARONE AT 1 MG/MIN. NS TKO. CL TO RIJ C/D/I WITH SAFE SET IN PLACE. ART LINE TO RIGHT FEMORAL C/D/I. VENT AC 20, PC 15, PEEP 15, FIO2 80%. VITAL SIGNS STABLE AT THIS TIME. OGT IN PLACE, TF AT 10 ML/HR. ACKERMAN TEMP PROBE IN PLACE WITH CLEAR YELLOW OUTPUT NOTED. RECTAL TUBE IN PLACE WITH LIQUID BROWN OUTPUT NOTED. PT WITH SOFT CAST TO LLE DUE TO RECENT FX. NO FAMILY AT BEDSIDE. PT HAS MADE NO PURPOSFUL MOVEMENTS, PT NOT RESTRAINED. WILL CONTINUE TO MONITOR.
[2018-09-05 04:41] LABS: Hemoglobin 7.5 g/dL (11.5-16.0); Mean Corpuscular HGB 31.3 pg (26.0-34.0); Mean Corpuscular HGB Conc 34.1 g/dL (31.5-36.5); Mean Corpuscular Volume 92 fL (80-100); NRBC ABSOLUTE 0.38 K/mm3 (0.00-0.02); Platelet Count 51 K/mm3 (150-400); RDW Coefficient Variation 15.4 % (11.7-14.2); RDW Standard Deviation 51.6 fL (35.1-46.3); White Blood Cell Count 19.08 K/mm3 (4.00-11.30)
[2018-09-05 04:53] LABS: International Normalized Ratio 1.25
[2018-09-05 04:54] LABS: PCO2 Arterial 49.5 mmHg (35-45); PO2 Arterial 72.8 mmHg (80-100)
[2018-09-05 04:55] LABS: pH Blood Arterial 7.29 (7.35-7.45)
[2018-09-05 05:00] LABS: Magnesium, Blood 2.7 mg/dL (1.6-2.4); Phosphorus, Blood 4.2 mg/dL (2.5-4.9)
[2018-09-05 05:01] LABS: Albumin, Blood 1.2 g/dL (3.4-5.0); Anion Gap 12 mmol/L (6-16); Blood Urea Nitrogen 92 mg/dL (8-24); Bun/Creatinine Ratio 22.3 (12.0-20.0); CO2, Blood 23 mmol/L (21-32); CPK Creatine Kinase 91 U/L (26-193); Chloride, Blood 98 mmol/L (98-108); Creatine Kinase MB 2.1 ng/mL (0.0-3.6); Creatine Kinase MB Index 2.3 (0.0-4.0); Creatinine, Blood 4.13 mg/dL (0.40-1.00); Glomerular Filtration Rate 12 (60-); Glucose, Blood 194 mg/dL (70-99); Magnesium, Blood 2.6 mg/dL (1.6-2.4); Potassium, Blood 4.1 mmol/L (3.5-5.5); Sodium, Blood 133 mmol/L (136-145); Uric Acid, Blood 7.8 mg/dL (2.6-6.0)
[2018-09-05 05:09] LABS: Mean Platelet Volume 13.1 fL (9.1-12.4)
[2018-09-05 05:27] LABS: BAND PERCENT MAN 17 % (0-8); BASOPHILS PERCENT MAN 0 % (0-2); EOSINOPHILS PERCENT MAN 0 % (0-6); LYMPHOCYTES ABSOLUTE MAN 0.57 K/mm3 (0.84-5.20); LYMPHOCYTES PERCENT MAN 3 % (21-46); MONOCYTES ABSOLUTE MAN 0.38 K/mm3 (0.16-1.47); MONOCYTES PERCENT MAN 2 % (4-13); NEUTROPHILS ABSOLUTE MAN 18.12 K/mm3 (1.96-9.15); SEG NEUTROPHILS PERCENT MAN 78 % (41-73); TOTAL CELLS COUNTED 100
--- NOTE | 2018-09-05 06:08 | NUR ---
SHIFT SUMMARY NO ACUTE CHANGES THIS SHIFT. PT UNCHANGED IN RESPONSE TO NOXIOUS STIMULI. NO PURPOSEFUL MOVEMENT NOTED. PT REMAINS UNRESTRAINED. VENT SETTINGS UNCHANGED AT AC 20, PC 15, PEEP 15, FIO2 80%. VITAL SIGNS STABLE. PT SEDATED WITH 10 MCG/KG/MIN PROPOFOL. AMIODARONE REMAINS AT 1 MG/MIN, NS TKO, BICARB AT 125 ML/HR. OGT REMAINS IN PLACE WITH TF AT 10 ML/HR, PT WITH RESIDUALS 140-210'S. CL TO RIJ C/D/I. ART LINE TO R FEMORAL C/D/I. ACKERMAN REMAINS IN PLACE WITH POOR CLEAR YELLOW URINE OUTPUT THIS SHIFT. RECTAL TUBE REMAINS IN PLACE WITH LIQUID BROWN OUTPUT. LLE REMAINS IN SOFT CAST. WILL CONTINUE TO MONITOR AND REPORT OFF TO ONCOMING RN.
--- NOTE | 2018-09-05 08:00 | NUR ---
INITIAL ASSESSMENT PATIENT INTUBATED AND ON MINIMAL SEDATION TO HELP WITH SYNCHRONIZATION WITH VENT/ WOB. PATIENT UNRESPONSIVE. NO MOVEMENTS NOTED WITH NOXIOUS STIMULI. NO COUGH, GAG, OR SWALLOW NOTED. PUPILS REACT BRISKLY TO LIGHT, HOWEVER ARE FIXED, STARING STRAIGHT AHEAD. PATIENT AFEBRILE. NO SIGNS OF PAIN OR DISCOMFORT NOTED AT THIS TIME. PATIENT ON VENT SETTINGS OF AC 20, PRESSURE SUPPORT OF 15, PEEP OF 15, AND FIO2 DECREASED FROM 80% TO 70% BY DR. AGUILAR THIS AM. PATIENT SATTING 88% AND ABOVE. CHUCK COARSE, LLL CLEAR, RUL CLEAR, RLL COARSE AND DIMINISHED. BLOODY SECRETIONS NOTED UPON SUCTIONING- DR. AGUILAR AWARE. PATIENT IN A. FIB, HR 80S TO LOW 100S. AMIO DRIP AT 1 MG/ MINUTE. BP STABLE. SBP 90S TO 120S. ABDOMEN MODERATELY DISTENDED, FIRM, WITH HYPOACTIVE BS. FLEXISEAL IN PLACE DRAINING BROWN, LIQUID STOOL. PIVOT 1.5 INCREASED TO GOAL RATE OF 20 MLS/ HOUR. RESIDUAL OF 45 MLS OBTAINED AND REINSTILLED. ACKERMAN IN PLACE DRAINING MINIMAL AMOUNTS OF YELLOW URINE. L FOOT BUNION NOTED. ABRASION NOTED TO R INNER ANKLE. SKIN TIGHT FROM GENERALIZED, NONPITTING EDEMA. 2+ EDEMA IN BUES. 1+ EDEMA NOTED IN BLES. SODIUM BICARB INFUSING AT 125 MLS/ HOUR, NS TKO, AMIO AT 1 MG/ MINUTE, PROPOFOL AT 10 MCG/ KG/ MINUTE. PATIENT HAS BEEN RECEIVING IV ANTIBIOTICS. AT BEDSIDE. DAUGHTER CALLED EARLIER AND IS ON HER WAY FROM [place]. BED LOW, CALL LIGHT IN REACH. WILL CONTINUE TO MONITOR PATIENT FREQUENTLY THROUGHOUT SHIFT.
--- NOTE | 2018-09-05 12:00 | NUR ---
NO CHANGES IN NEURO STATUS. PATIENT AFEBRILE. PATIENT REMAINS SATTING 88% AND ABOVE ON SAME VENT SETTINGS. UPPER LUNG LOBES CLEAR. RML AND RLL COARSE/ TIGHT/ DIMINISHED, LLL DIM AND TIGHT. PATIENT REMAINS IN A. FIB, HR 90S TO 120S. BP STABLE. AMIO DRIP REMAINS INFUSING AT 1 MG/ MINUTE. NO OTHER ACUTE CHANGES TO NOTE ON AT THIS TIME. CNVI OF ZERO. FAMILY AT BEDSIDE. WILL CONTINUE TO MONITOR.
--- NOTE | 2018-09-05 13:18 | NUR ---
DR. JEWELL INFORMED THAT PATIENT URINE OUTPUT ONLY 80 CC SINCE BUMEX AND ALBUMIN GIVEN. DR. JEWELL SPOKE TO PATIENT'S DAUGHTER ON PHONE IN FRONT OF NURSE ASKING IF THE FAMILY WOULD BE OKAY WITH DIALYSIS. DAUGHTER STATED THAT SHE WANTED TO CONTINUE WITH DIALSIS. DR. AGUILAR NOTIFIED THAT PATIENT NEEDS DIALYSIS PORT AND DIALYSIS PER DR. JEWELL.
[2018-09-05 14:06] LABS: HEPARIN INDUCED PLATELET AB 0.213 OD (0.000-0.400)
--- NOTE | 2018-09-05 14:57 | NUR ---
TEMPORARY HD CATHETER PLACED BY DR. AGUILAR. RN, ANDERS, IN ROOM TO BEGIN DIALYSIS AT THIS TIME.
--- NOTE | 2018-09-05 15:16 | NUR ---
FIRST RUN HEMODIALYSIS PER DR JEWELL'S ORDER TODAY. NEW L FEMORAL CVC PLACED BY DR OVERTON. EXCELLENT FLOW AND PRESSURES. NEW HEPATITIS PROFILE ORDERED.
--- NOTE | 2018-09-05 16:39 | NUR ---
NO NEURO CHANGES TO NOTE ON. PATIENT AFEBRILE. PATIENT REMAINS SATTING 88% AND ABOVE ON SAME VENT SETTINGS. EXPIRATORY WHEEZE NOTED IN RUL, CHUCK CLEAR, LOWER LOBES COARSE, DIMINISHED AND TIGHT SOUNDING. PATIENT REMAINS IN A. FIB, HR 100 TO 120S. BP STABLE. RESIDUAL OF 45 MLS OBTAINED FROM OG- REINSTILLED. URINE OUTPUT OF 55 MLS. NO OTHER ACUTE CHANGES TO NOTE ON AT THIS TIME. NO SIGNS OF PAIN OR DISCOMFORT NOTED. FAMILY REMAINS AT BEDSIDE.
--- NOTE | 2018-09-05 17:32 | NUR ---
DIALYSIS COMPLETE. NET OUTPUT OF 2 L PER RN
--- NOTE | 2018-09-05 19:06 | NUR ---
SHIFT SUMMARY PATIENT REMAINED INTUBATED AND ON SEDATION. PATIENT REMAINED UNRESPONSIVE, EYES FIXED. NO COUGH, GAG, OR SWALLOW REFLEXES NOTED. PATIENT HAD NO PAIN DURING SHIFT. PATIENT REMAINED AFEBRILE. PATIENT REMAINED ON VENT: AC 20, PC OF 15, PEEP 15, FIO2 70%. MODERATE AMOUNT OF BLOODY SECRETIONS BEING SUCTIONED FROM ETT. PATIENT REMAINED IN A. FIB, HR MOSTLY 80S TO 120S. BP STABLE. PATIENT REMAINED ON AMIO DRIP AT 1 MG/ MINUTE. PATIENT REMAINS TOLERATING TF AT GOAL RATE. HIGHEST RESIDUAL 70 ML. FLEXISEAL DRAINED 250 MLS BROWN, LIQUID STOOL. TEMP PROBE ACKERMAN DRAINED [address] JEWELL AND DR. AGUILAR BOTH AWARE OF OUTPUT AMOUNTS. NO CHANGE TO SKIN. PATIENT REMAINS EDEMATOUS. PATIENT HAD DIALYSIS CATH PLACED AND DIALYSIS THIS SHIFT- 2 L NET OUT. FAMILY IN THROUGHOUT DAY. NO SIGNS OF PAIN OR DISCOMFORT NOTED AT THIS TIME. REPORT GIVEN TO ONCOMING MANAGER PATHOLOGY NURSE.
[2018-09-05 19:23] LABS: PCO2 Arterial 43.9 mmHg (35-45); PO2 Arterial 67.8 mmHg (80-100); pH Blood Arterial 7.42 (7.35-7.45)
--- NOTE | 2018-09-05 20:00 | NUR ---
PT INTUBATED AND SEDATED WITH PROPOFOL. NON RESPONSIVE DOES NOT RESPOND TO NOXIOUS STIMULI. NO SPONT MOVEMENT OF EXTREMITIES. HAS TF RUNNING IN OG. RESIDUALS FROM OG ARE TF COLOR WITH MEDIUM BROWN MIXED IN AND FLAKEY LOOKING. PUNGENT BILE ODOR. RESIDUAL 140ML REFED. PT IS EDEMATOUS T/O AND SKIN IS TIGHT. A-LINE D/C'D TO R FEMORAL BY DAY RN. SITE IS STABLE. NO SIGN OF BLEEDING OR HEMATOMA. L GROIN HAS DIALYSIS CATH. SEE ASSESSMENT FOR REST OF ASSESSMENT.
--- NOTE | 2018-09-05 20:39 | NUR ---
Asked by friend of pt to provide prayer at bedside. Kellee was alone in room, ventilated and non-responsive. Prayer for peace and healing provided at bedside. I will remain available to pt and family.
--- NOTE | 2018-09-06 02:27 | NUR ---
PT HAD BEEN ALARMING THE VENTILATOR. WAS HAVING LOW VOLUMES AND INCREASED RESP. TRIED INCREASING SEDATION AND TRYING ATIVAN AND FENTANYL ADJUNCT TO SEDATION. CALLED DR. AGUILAR WHO CHANGED VENT SETTINGS FROM PC TO AC ONLY WITH TV 300. SPO2 88-90% ON THOSE SETTINGS.
[2018-09-06 03:45] LABS: pH Blood Arterial 7.38 (7.35-7.45)
[2018-09-06 03:48] LABS: Hematocrit 21.3 % (33.0-51.0); Hemoglobin 7.3 g/dL (11.5-16.0)
[2018-09-06 04:07] LABS: Albumin, Blood 1.6 g/dL (3.4-5.0); Anion Gap 16 mmol/L (6-16); Blood Urea Nitrogen 90 mg/dL (8-24); Bun/Creatinine Ratio 28.4 (12.0-20.0); CO2, Blood 24 mmol/L (21-32); Calcium, Blood 7.6 mg/dL (8.5-10.1); Chloride, Blood 94 mmol/L (98-108); Creatinine, Blood 3.17 mg/dL (0.40-1.00); Glomerular Filtration Rate 16 (60-); Glucose, Blood 123 mg/dL (70-99); Magnesium, Blood 2.5 mg/dL (1.6-2.4); Phosphorus, Blood 4.3 mg/dL (2.5-4.9); Potassium, Blood 4.3 mmol/L (3.5-5.5); Sodium, Blood 134 mmol/L (136-145)
--- NOTE | 2018-09-06 06:02 | NUR ---
SUMMARY PT INTUBATED AND SEDATED WITH PROPOFOL. NO RESPONSE TO NOXIOUS STIMULI. RESP RATE IS HIGH DESPITE TRYING DIFFERENT MEDS FOR SEDATION. DR. AGUILAR CHANGED VENT SETTINGS DURING THE NIGHT DUE TO PT'S TV DROPPING BELOW 250 CONSISTANTLY. CHANGED TO AC 20, TV 300, PEEP 15, FIO2 70%. SPO2 REMAINS ABOVE 88% AFTER SETTINGS CHANGE. RESIDUALS FROM OG HAVE BEEN 140-160ML OF TUBE FEED MIXED WITH A MEDIUM BROWN COLOR. SKIN CONTINUES TO BE TIGHT T/O. EXTREMITIES ELEVATED ON PILLOWS. PT CONVERTED TO SR BRIEFLY DURING THE NIGHT BUT WENT BACK TO AFIB SHORTLY AFTER. SEE EKG STRIP.
--- NOTE | 2018-09-06 08:00 | NUR ---
INITIAL ASSESSMENT PATIENT INTUBATED AND ON SEDATION. PATIENT UNRESPONSIVE, NO MOVEMENTS TO NOXIOUS STIMULI. NO GAG, COUGH, OR SWALLOW REFLEXES NOTED. PUPILS REACT BRISK TO LIGHT, FIXED STRAIGHT AHEAD. PATIENT HAS NO SIGNS OF PAIN OR DISCOMFORT NOTED AT THIS TIME. PATIENT HAS TEMP OF 99.7 DEGREES FAHRENHEIT. PATIENT SATTING 87% AND UP. RR IN THE 40S. UPPER LOBES CLEAR, LOWER LOBES DIMINISHED AND TIGHT, RLL COARSE. PATIENT ON VENT SETTINGS OF AC 20, PEEP 15, TV 300, FIO2 70%. PATIENT IN A. FIB, HR LOW 100S TO 120S. BP STABLE. AMIO INFUSING AT 1 MG/ MINUTE. ABDOMEN MODERATELY DISTENDED, FIRM, WITH HYPOACTIVE BS. TF INFUSING AT GOAL RATE OF 20 MLS/ HOUR WITH 30 ML WATER FLUSH Q4H. RESIDUAL OF 130 MLS OBTAINED AND REINSTILLED. RESIDUAL BROWN AND RESEMBLES STOOL. FLEXISEAL DRAINING BROWN, LIQUID STOOL. TEMP PROBE ACKERMAN DRAINING MINIMAL AMOUNTS OF YELLOW URINE WITH SEDIMENT NOTED. PATIENT SKIN TIGHT FROM EDEMA. SOFT CAST TO LLE. BUNION NOTED ON L FOOT. ABRASION TO RIGHT ANKLE AND L GREAT TOE. NS INFUSING TKO, PROPOFOL AT 15 MCG/ KG/ MINUTE, AMIODARONE AT 1 MG/ MINUTE. BED LOW, CALL LIGHT IN REACH. FAMILY AT BEDSIDE. WILL CONTINUE TO MONITOR PATIENT FREQUENTLY THROUGHOUT SHIFT.
--- NOTE | 2018-09-06 08:56 | NUR ---
RESPIRATIONS INCREASED INTO HIGH 40S. O2 SAT DOWN TO 87%. RT CALLED. PRN ATIVAN GIVEN, DID NOT SEEM TO HELP. SMALL DOSE PRN FENTANYL GIVEN- BROUGHT RR DOWN TO 30S. O2 INCREASED TO 100%. PATIENT PROPOFOL DECREASED FOR BP. ANOTHER SMALL DOSE OF PRN FENTANYL GIVEN FOR RR IN HIGH 30S. WILL CONTINUE TO MONITOR.
--- NOTE | 2018-09-06 09:40 | NUR ---
FIO2 DECREASED TO 65% BY DR. AGUILAR.
--- NOTE | 2018-09-06 09:41 | NUR ---
SHOWED TF RESIDUAL THAT IS RESEMBLING STOOL TO DR. AGUILAR. NO ORDERS OBTAINED AT THIS TIME.
--- NOTE | 2018-09-06 10:21 | NUR ---
FIO2 INCREASED TO 70% TO KEEP SATS 88% AND GREATER.
--- NOTE | 2018-09-06 11:20 | NUR ---
DR. AGUILAR INFORMED OF SPUTUM CULTURE PRELIMINARY REPORT.
--- NOTE | 2018-09-06 12:30 | NUR ---
NO CHANGE IN NEURO STATUS. PATIENT HAS TEMP OF 99.3 DEGREES FAHRENHEIT. PATIENT REMAINS ON AC 20, PEEP 15, TV 300, FIO2 70%. RR IN THE 30S. IT APPEARS THAT PRN FENTANYL WORKS THE BEST WHEN HER RR'S INCREASE. PATIENT HAS HISTORY OF CHRONIC BACK PAIN AND HAS TAKEN MORPHINE AT HOME FOR LONG TIME PER REPORT FROM DAUGHTER. PATIENT IN NSR, HR 80S TO 90S. BP STABLE ON 1 MCG/ MINUTE OF LEVOPHED. DR. AGUILAR STATED TO KEEP MAP OVER 60. AMIODARONE REMAINS AT 1 MG/ MINUTE. PICC LINE INSERTED INTO GUSTAVO- LINE IS POSITIONAL- ARM NEEDS TO BE STRAIGHTENED IN ORDER TO FLUSH. CENTRAL LINE REMOVED WITH NO PROBLEMS. PROPOFOL INFUSING AT 30 MCG/ KG/ MINUTE. NS TKO X 2. RESIDUAL OF 170 MLS OBTAINED AND REINSTILLED INTO OG. RESIDUAL CONTINUES TO RESEMBLE STOOL. NO OTHER ACUTE CHANGES TO NOTE ON AT THIS TIME. FAMILY AT BEDSIDE. WILL CONTINUE TO MONITOR.
--- NOTE | 2018-09-06 13:43 | NUR ---
DIALYSIS NURSE, ANDERS, IN ROOM AT THIS TIME TO SET UP FOR DIALYSIS.
--- NOTE | 2018-09-06 16:28 | NUR ---
NO NEURO CHANGES TO NOTE ON. PATIENT AFEBRILE. PATIENT REMAINS SATTING 88% AND GREATER ON SAME VENT SETTINGS. RR IN THE 30S. PATIENT IN A. FIB, HR 90S TO LOW 100S. BP ON LOWER SIDE FROM PROPOFOL AND DIALYSIS BUT IS STABLE WITH LEVOPHED DRIP AT 2.67 MCG/ MINUTE. DIALYSIS NURSE TITRATING LEVOPHED DRIP. BLOOD SUGAR OF 130. 65 MLS OF RESIDUAL OBTAINED AND REINSTILLED. NO OTHER ACUTE CHANGES TO NOTE ON AT THIS TIME. AT BEDSIDE. WILL CONTINUE TO MONITOR.
--- NOTE | 2018-09-06 16:45 | NUR ---
DIALYSIS COMPLETE. 3 L NET OUTPUT REPORTED BY DIALYSIS NURSE.
--- NOTE | 2018-09-06 17:00 | NUR ---
DIALYSIS COMPLETE. 2.5 L NET OUT.
--- NOTE | 2018-09-06 18:18 | NUR ---
SHIFT SUMMARY PATIENT REMAINED INTUBATED AND ON SEDATION. PATIENT REMAINED UNRESPONSIVE, PUPILS FIXED. NO CHANGES IN NEURO STATUS T/O SHIFT. PATIENT HAD NO SIGNS OF PAIN T/O SHIFT. PATIENT HAD TMAX OF 99.8 DEGREES FAHRENHEIT. PATIENT LUNGS REMAINED DIM/ TIGHT IN LOWER LOBES. PATIENT FIO2 ON VENT HAD TO BE INCREASED FOR SHORT TIME THIS AM TO 100% WHEN PATIENT SATS DECREASED AND RR UP TO 48. PATIENT HAS BEEN ON 70% FIO2 SINCE. NO SECRETIONS SUCTIONED THROUGH ETT. RR HAS RANGED FROM 20S TO 40S. INCREASING THE PROPOFOL AND GIVEN PRN ATIVAN DID NOT SEEM TO HELP DECREASE PATIENT'S RR. PATIENT SEEMS MOST RESPONSIVE TO PRN FENTANYL. PATIENT'S DAUGHTER REPORTED THAT SHE HAS CHRONIC BACK PAIN AND HAS TAKEN MORPHINE AT HOME FOR A LONG TIME FOR THAT PAIN. PATIENT HAS BEEN IN BETWEEN A. FIB AND NSR T/O DAY. HR HAS RANGED FROM 80S TO 120S. BP DECREASED WITH INCREASE IN MEDICATIONS TO HELP BRING DOWN RR THIS AM. PATIENT WAS STARTED AND LEVOPHED AND BPS HAVE BEEN STABLE SINCE. TF REMAINS INFUSING AT GOAL RATE OF 20 MLS/ HOUR. HIGHEST RESIDUAL TODAY WAS 170 MLS. RESIDUAL CONTINUES TO RESEMBLE STOOL. DR. AGUILAR IS AWARE. FLEXISEAL DRAINED 100 MLS OF BROWN, LIQUID STOOL. TEMP PROBE ACKERMAN DRAINING VERY MINIMAL AMOUNT OF YELLOW URINE WITH SEDIMENT. NO CHANGE TO SKIN. PATIENT REMAINS EDEMATOUS. LEVOPHED CURRENTLY ON SB, PROPOFOL DECREASED TO 15 MCG/ KG/ MINUTE, AMIODARONE AT 1 MG/ MINUTE, AND NS TKO X 2. PATIENT HAD DIALYSIS TODAY, HAD NET OUT OF 2.5 L AND ALSO RECEIVED 2 UNITS OF PRBCS. FAMILY IN AND OUT T/O DAY. PATIENT DOES NOT APPEAR TO HAVE ANY PAIN AT THIS TIME. BED LOW, CALL LIGHT IN REACH. WILL CONTINUE TO MONITOR PATIENT FREQUENTLY THROUGHOUT SHIFT UNTIL REPORT GIVEN TO ONCOMING ROOF BOLTER HELPER NURSE SHORTLY.
--- NOTE | 2018-09-06 20:41 | NUR ---
PT INTUBATED AND SEDATED WITH PROPOFOL. PT IS NON RESPONSIVE TO NOXIOUS STIMULI. NO SPONTANEOUS MOVEMENT OF EXTREMITIES. RESP RATE WAS IN THE HIGH 30'S AFTER REPOSITIONING. GAVE FENTANYL AND RESP RATE CAME DOWN TO HIGH 20'S AND SPO2 90%. RESIDUAL FROM OG IS LIGHT BROWN TONIGHT. ON AMIODORONE GTT, STILL AFIB. NOT ON PRESSORS AT THE MOMENT.
--- NOTE | 2018-09-06 23:12 | NUR ---
NO CHANGE IN MENTAL STATUS. RT DID PERCUSSION WHILE PT WAS ON HER L SIDE. HAD TO INCREASE FIO2 TO 100% FOR A SHORT AMT OF TIME FOR HER TO RECOVER BUT NOW BACK DOWN TO 70%. TURNING PT FAR TO SIDES TOLERATED TO RECRUIT ALVEOLI. SPO2 88% AND ABOVE.
[2018-09-07 04:59] LABS: PCO2 Arterial 60.8 mmHg (35-45); pH Blood Arterial 7.22 (7.35-7.45)
[2018-09-07 05:28] LABS: Hematocrit 30.1 % (33.0-51.0); Hemoglobin 10.4 g/dL (11.5-16.0); Mean Corpuscular HGB 30.4 pg (26.0-34.0); Mean Corpuscular HGB Conc 34.6 g/dL (31.5-36.5); NRBC ABSOLUTE 0.83 K/mm3 (0.00-0.02); Platelet Count 66 K/mm3 (150-400); RDW Coefficient Variation 17.1 % (11.7-14.2); RDW Standard Deviation 54.8 fL (35.1-46.3); Red Blood Cell Count 3.42 M/mm3 (3.80-5.20); White Blood Cell Count 16.61 K/mm3 (4.00-11.30)
[2018-09-07 05:35] LABS: Mean Corpuscular Volume 88 fL (80-100); Mean Platelet Volume 13.2 fL (9.1-12.4)
[2018-09-07 06:00] LABS: BAND PERCENT MAN 8 % (0-8); BASOPHILS PERCENT MAN 0 % (0-2); EOSINOPHILS PERCENT MAN 0 % (0-6); LYMPHOCYTES ABSOLUTE MAN 0.33 K/mm3 (0.84-5.20); LYMPHOCYTES PERCENT MAN 2 % (21-46); METAMYELOCYTE ABSOLUTE MAN 0.33 K/mm3 (0.00-0.00); METAMYELOCYTE PERCENT MAN 2 % (0-0); MONOCYTES ABSOLUTE MAN 0.33 K/mm3 (0.16-1.47); MONOCYTES PERCENT MAN 2 % (4-13); MYELOCYTE ABSOLUTE MAN 0.16 K/mm3 (0.00-0.00); MYELOCYTE PERCENT MAN 1 % (0-0); NEUTROPHILS ABSOLUTE MAN 15.44 K/mm3 (1.96-9.15); SEG NEUTROPHILS PERCENT MAN 85 % (41-73); TOTAL CELLS COUNTED 100
[2018-09-07 06:01] LABS: Magnesium, Blood 2.6 mg/dL (1.6-2.4)
[2018-09-07 06:04] LABS: Albumin, Blood 1.6 g/dL (3.4-5.0); Anion Gap 13 mmol/L (6-16); Blood Urea Nitrogen 96 mg/dL (8-24); Bun/Creatinine Ratio 33.9 (12.0-20.0); CO2, Blood 25 mmol/L (21-32); Calcium, Blood 7.8 mg/dL (8.5-10.1); Chloride, Blood 96 mmol/L (98-108); Creatinine, Blood 2.83 mg/dL (0.40-1.00); Glomerular Filtration Rate 18 (60-); Glucose, Blood 208 mg/dL (70-99); Phosphorus, Blood 6.6 mg/dL (2.5-4.9); Potassium, Blood 4.3 mmol/L (3.5-5.5); Sodium, Blood 134 mmol/L (136-145); Vancomycin, Random 8.9 ug/mL
--- NOTE | 2018-09-07 06:09 | NUR ---
SUMMARY PT INTUBATED AND SEDATED WITH PROPOFOL. PT RECEIVED FENTANYL 2X DURING THE NIGHT WHEN RESP IN THE HIGH 30'S. AFTER FENTANYL RESP IN THE 20'S. CALLED DR. AGUILAR WITH ABG RESULTS THIS AM. NO NEW ORDERS. PT CONTINUES TO BE NON RESPONSIVE. NO SPONT MOVEMENT OF EXTREMITIES. RESIDUALS FROM OG WERE 250ML THIS AM. PUT TF ON STANDBY FOR THE MOMENT. RESIDUALS HAVE BEEN BILE/PIVOT COLOR ALL NIGHT. NO BROWN RESIDUALS LIKE THE PREVIOUS NIGHT. REMAINS ON AMIO GTT. SHE HAS CONVERTED TO SR THIS AM AFTER BEING IN AFIB ALL NIGHT.
[2018-09-07 07:07] LABS: HBSAG SCREEN Negative (Negative); HEP A AB, IGM Negative (Negative); HEP B CORE AB, IGM Negative (Negative); HEP C VIRUS AB <0.1 (0.0-0.9)
--- NOTE | 2018-09-07 08:33 | NUR ---
PT REMAINS UNRESPONSIVE AND ONLY ON LOW DOSE PROPOFOL AT 15MCG. NO COMMNADS FOLLOWED, NO CURRENT SPONT MOVEMENT. WILL ASSESS NOXIOUS STIMULATION RESPONSE. ONLY WEAK MINIMAL COUGH RESP. WITH SUCTIONING. NO RESTRAINTS ARE IN USE.
--- NOTE | 2018-09-07 15:03 | NUR ---
1200 approx....DR RITCHIE IN TO ASSESS PT. PROPOFOL STOPPED, AMIODARONE GTT DEC TO 0.5MG.MIN AND PT ON 75%FIO2. AFTER 30-OSWALDO MINUITES PT BP ELEVATED NOTED AND AND SATS HAS DROPPED. PT SX AND NO PLUGS OR EXCESSIVE SECRAETIONS NOTED. RT CALLED AND PT FIIO2 INC TO 100%. AT THIS POINT SATS 79-81% AND SLOWLY INC OVER NEXT HOUR-OSWALDO. PT OFF PROPOFOL WAS STILL UNRESPONSIVEN TO NOXIOUS STIMULI BUT PARTIAL OPENING OF L EYE SPONTANIOUSLY W/O STUMULATION. WILL MOVE TO CPT BED PEGGY.
--- NOTE | 2018-09-07 15:09 | NUR ---
PT JUST MOVED TO CPT BED AND TOLERATED WELL. SATS WERE 95% DURING PROCEDD, SX W/O SPUTUM AND REMAINS COARSE FROM ELEVATED BP EPISODE. PT WAS RETURNED TO 15MCG OF PROPOFOL AT TIME OF ELEVATED BP EPISODE. VS IMPROVWED AND SATS NOTED.
--- NOTE | 2018-09-07 17:10 | NUR ---
PT FAMILY IN TO VISIT AND DAUGHTER CALLED IN FOR UPDATE. PT HAS TOLEARTED BED CPT WELL. FIO2 NOW AT 90%,. I/O NOTED THIS SHIFT. PT TOLAERATING T.F. AT REDUSED RATE OF 1OML PER DR PAZTRATE THIS AM. REMIANS IN NSR ON AMIO. GTT OF O.5MG. PROPOFOL GTT AT 15MCG.
--- NOTE | 2018-09-07 18:49 | NUR ---
H.D STARTED APPROX. 1800 AND PLAN A 2 1/2 HOUR RUN. VSS NOTED.
--- NOTE | 2018-09-07 19:39 | NUR ---
PATIENT INTUBATED AND SEDATED. PROPOFOL AT 15 MCG, DUE TO INCREASED HR, RESP AND BP WHEN OFF PROPOFOL. VENT SET AT AC 20, TV 300, PEEP 15, FIO2 85%. AMIODARONE DRIP CONTINUES AT 0.5MG PLAN TO CONTINUE AT THIS RATE T/O THE NIGHT. OG IN PLACE WITH TUBE FEEDING AT 10/HR WILL CONTINUE TO MONITOR RESIDUAL T/O NIGHT. DIALYSIS TREATMENT RUNNING AT THIS TIME. PLAN TO TAKE PATIENT FOR CT OF THE HEAD AFTER DIALYSIS IS COMPLETE.
--- NOTE | 2018-09-07 22:03 | NUR ---
PATIENT TO CT OF HEAD, WITH RT ON PORTABLE VENT. SLIGHT DESAT WITH TRANSFER RECOVERING WELL NOW BIOX 93%. PATIENT APPEARS TO BE BACK TO AFIB. AMIODARONE DRIP CONTINUES RATE 95-111
[2018-09-08 03:39] LABS: PCO2 Arterial 52.2 mmHg (35-45); PO2 Arterial 85.8 mmHg (80-100); pH Blood Arterial 7.26 (7.35-7.45)
[2018-09-08 03:51] LABS: BASOPHILS ABSOLUTE AUTO 0.13 K/mm3 (0.00-0.23); BASOPHILS PERCENT AUTO 1 % (0-2); Hematocrit 30.8 % (33.0-51.0); Hemoglobin 10.5 g/dL (11.5-16.0); Mean Corpuscular HGB 29.8 pg (26.0-34.0); Mean Corpuscular HGB Conc 34.1 g/dL (31.5-36.5); Mean Corpuscular Volume 88 fL (80-100); NRBC ABSOLUTE 1.28 K/mm3 (0.00-0.02); NRBC Auto 7.7 /100 WBC (0.0-0.2); Platelet Count 73 K/mm3 (150-400); RDW Coefficient Variation 17.7 % (11.7-14.2); RDW Standard Deviation 56.4 fL (35.1-46.3); Red Blood Cell Count 3.52 M/mm3 (3.80-5.20); White Blood Cell Count 16.63 K/mm3 (4.00-11.30)
[2018-09-08 03:59] LABS: EOSINOPHILS PERCENT AUTO 0 % (0-6); IMMATURE GRAN ABSOLUTE AUTO 1.16 K/mm3 (0.00-0.10); IMMATURE GRAN PERCENT AUTO 7 % (0-1); LYMPHOCYTES ABSOLUTE AUTO 0.67 K/mm3 (0.84-5.20); LYMPHOCYTES PERCENT AUTO 4 % (21-46); MONOCYTES ABSOLUTE AUTO 0.37 K/mm3 (0.16-1.47); MONOCYTES PERCENT AUTO 2 % (4-13); Mean Platelet Volume 13.6 fL (9.1-12.4); NEUTROPHILS PERCENT AUTO 86 % (41-73)
[2018-09-08 04:03] LABS: Albumin, Blood 1.7 g/dL (3.4-5.0); Anion Gap 14 mmol/L (6-16); Blood Urea Nitrogen 89 mg/dL (8-24); Bun/Creatinine Ratio 35.3 (12.0-20.0); CO2, Blood 24 mmol/L (21-32); Calcium, Blood 7.7 mg/dL (8.5-10.1); Chloride, Blood 95 mmol/L (98-108); Creatinine, Blood 2.52 mg/dL (0.40-1.00); Glomerular Filtration Rate 20 (60-); Glucose, Blood 158 mg/dL (70-99); Magnesium, Blood 2.7 mg/dL (1.6-2.4); Phosphorus, Blood 6.6 mg/dL (2.5-4.9); Potassium, Blood 4.7 mmol/L (3.5-5.5); Sodium, Blood 133 mmol/L (136-145)
[2018-09-08 04:33] LABS: BAND PERCENT MAN 19 % (0-8); BASOPHILS PERCENT MAN 0 % (0-2); EOSINOPHILS PERCENT MAN 0 % (0-6); LYMPHOCYTES ABSOLUTE MAN 0.33 K/mm3 (0.84-5.20); LYMPHOCYTES PERCENT MAN 2 % (21-46); METAMYELOCYTE ABSOLUTE MAN 0.16 K/mm3 (0.00-0.00); METAMYELOCYTE PERCENT MAN 1 % (0-0); MONOCYTES ABSOLUTE MAN 0.33 K/mm3 (0.16-1.47); MONOCYTES PERCENT MAN 2 % (4-13); NEUTROPHILS ABSOLUTE MAN 15.79 K/mm3 (1.96-9.15); SEG NEUTROPHILS PERCENT MAN 76 % (41-73); TOTAL CELLS COUNTED 100
--- NOTE | 2018-09-08 06:39 | NUR ---
SUMMARY PATIENT REMAINS INTUBATED AND SEDATED. PROPOFOL DRIP CONTINUES DUE TO INCREASED RESP. PROPERTY TECHNICIAN CONTINUES TO SHOW AFIB WITH HEART RATE 90-110'S. AMIODARONE DRIP CONTINUES. OG WITH TUBE FEEDING AT 10/HR WITH INCREASING RESIDUALS THE NIGHT PROGRESSED. RECTAL TUBE CONTINUES TO DRAIN LIQUID BROWN STOOL. DOCTOR FANTA IN TO SEE PATIENT, PLAN FOR DIALYSIS AGAIN TODAY. CT OF HEAD COMPETED LAST NIGHT, PLAN FOR EEG TODAY.
--- NOTE | 2018-09-08 10:18 | NUR ---
PT WAS IN AND SPOKE WITH DR RITCHIE AND IS NOW AWARE OF POOR CT FINDINGS AND TOLD OF NEUROOLOGY CONSULT TO FOLLOW. PT CONT TO NOT SHOW SIGNS OF RESPONDING OR SPONT MOVEMENT OF EXTREMETIES, MINIMAL TO NO GAG RESPONSE, NO RESPONSE TO NOXIOUS STIMULI ON LOW DOSE PROPOFOL, EYES HAVE A VERY SLOW AND IRRIGULAR SIDEWAYS MOVEMENT AND BACK AT TIMES. NEUROLOGY CONSULT CALLED AND COORDINATED [facility] EEG FOR APPROX. 1900 TEST THIS PM.
--- NOTE | 2018-09-08 10:46 | NUR ---
1010 NEUROLOGY OFFFICE CALLED RE PT CONSULT.
--- NOTE | 2018-09-08 15:01 | NUR ---
H.D. STARTED AT 1430. PT IS SL HTN NOTED AND WILL FOLLOW WITH NIBP.
--- NOTE | 2018-09-08 17:34 | NUR ---
SIDE PORT ON HD CATH FOR NURSING USE FLUSHED. IN VISITING.
--- NOTE | 2018-09-08 18:11 | NUR ---
PT TOLERATED HD WITH POST DIALYSIS BP'S GOOD NOTED. PT NOT RESPONDING TO MOVEMENT OR STIUMLATION AT ANY TIME TODAY. VS,I/O, SATS NOTED. TF RESIDUALS HAVE IMPORVED NOTED WITH DEC CONT RATE AT 10ML AND IS YELLOW/ORANGE COLOR. PROPOFOL AT 15MCG, AMIO GTT AT 0.5MG.
--- NOTE | 2018-09-08 23:21 | NUR ---
PATIENT REMAINS INTUBATED AND SEDATED. PROPOFOL OFF AT 1900 FOR EEG, PLAN TO NOT RESTART PROPOFOL IF ABLE. EEG COMPLETE AT 2029. PATIENT REMAINS UNRESPONSIVE, NO MOVEMENT SEEN IN EXTREMITIES, EYES SLIGHTLY OPEN AT TIMES WITH EYES SLOWLY ROAMING AT TIMES. OG IN PLACE WITH PIVIT RUNNING AT 10/HR WITH 111 CC RESIDUAL REFED, REGLAN IV GIVEN. RECTAL TUBE REMAINS IN PLACE DRAINING LIQUID BROWN STOOL. DOCTOR CHAU AND DOCTOR RUEDA IN TO SEE PATIENT. PATIENTS DAUGHTER GIVEN UPDATE AND NOTIFIED THAT DOCTOR CLARK WOULD LIKE TO TALK TO HER AND THE PATIENTS TOMORROW MORNING.
[2018-09-09 04:40] LABS: PCO2 Arterial 47.4 mmHg (35-45); PO2 Arterial 82.9 mmHg (80-100); pH Blood Arterial 7.25 (7.35-7.45)
[2018-09-09 04:41] LABS: Hematocrit 29.3 % (33.0-51.0); Hemoglobin 10.1 g/dL (11.5-16.0); Mean Corpuscular HGB 30.3 pg (26.0-34.0); Mean Corpuscular HGB Conc 34.5 g/dL (31.5-36.5); Mean Corpuscular Volume 88 fL (80-100); NRBC ABSOLUTE 1.91 K/mm3 (0.00-0.02); NRBC Auto 9.2 /100 WBC (0.0-0.2); Platelet Count 94 K/mm3 (150-400); RDW Coefficient Variation 16.8 % (11.7-14.2); RDW Standard Deviation 53.4 fL (35.1-46.3); Red Blood Cell Count 3.33 M/mm3 (3.80-5.20); White Blood Cell Count 20.74 K/mm3 (4.00-11.30)
[2018-09-09 05:03] LABS: Albumin, Blood 1.7 g/dL (3.4-5.0); Anion Gap 16 mmol/L (6-16); Blood Urea Nitrogen 131 mg/dL (8-24); Bun/Creatinine Ratio 42.8 (12.0-20.0); CO2, Blood 21 mmol/L (21-32); Calcium, Blood 7.6 mg/dL (8.5-10.1); Chloride, Blood 92 mmol/L (98-108); Creatinine, Blood 3.06 mg/dL (0.40-1.00); Glomerular Filtration Rate 16 (60-); Glucose, Blood 157 mg/dL (70-99); Phosphorus, Blood 7.9 mg/dL (2.5-4.9); Potassium, Blood 5.3 mmol/L (3.5-5.5); Sodium, Blood 129 mmol/L (136-145)
[2018-09-09 05:33] LABS: BAND PERCENT MAN 12 % (0-8); BASOPHILS PERCENT MAN 0 % (0-2); EOSINOPHILS PERCENT MAN 0 % (0-6); LYMPHOCYTES ABSOLUTE MAN 0.62 K/mm3 (0.84-5.20); LYMPHOCYTES PERCENT MAN 3 % (21-46); METAMYELOCYTE PERCENT MAN 1 % (0-0); MONOCYTES PERCENT MAN 1 % (4-13); MYELOCYTE ABSOLUTE MAN 0.41 K/mm3 (0.00-0.00); MYELOCYTE PERCENT MAN 2 % (0-0); NEUTROPHILS ABSOLUTE MAN 19.08 K/mm3 (1.96-9.15); PROMYELOCYTE PERCENT MAN 1 % (0-0); SEG NEUTROPHILS PERCENT MAN 80 % (41-73); TOTAL CELLS COUNTED 100
--- NOTE | 2018-09-09 07:43 | NUR ---
SUMMARY PATIENT REMAINS INTUBATED WITH VENT SET AT AC 30, TV 300, PEE 15, FIO2 55% PATIENT RESPIRATIONS 30-40 PROPOFOL REMAINS OFF. NO MOVEMENT SEEN IN EXTREMITIES. OCCASIONAL GRIMACING WITH ORAL CARE. OG REMAINS IN PLACE WITH TUBE FEEDING AT 10/HR WITH RESIDUAL CONTINUES TO BE ELEVATED. RECTAL TUBE DRAINING LIQUID BROWN STOOL. HEART MONITOR SHOWING BACK AND FORTH FROM NSR TO AFIB. PATIENT NOW IN AFIB WITH RATE 90-110. AMIODARONE DRIP CONTINUES AT 0.5/HR. EEG COMPLETE PLAN FOR DOCTOR RUEDA TO MEET WITH FAMILY THIS EVENING.
--- NOTE | 2018-09-09 08:28 | NUR ---
0730-ASSUMED CARE OF PT. PT IS INTUBATED AND VENTED, PT IS UNRESPONSIVE. PT DOES NOT FOLLOW COMMANDS. PT HAS MINIMAL COUGH REFLEX, NO GAG, NO SWALLOW, NO BABINSKI REFLEX NOTED. PUPILS ARE REACTIVE TO LIGHT. AT TIMES PUPILS R PUPIL IS SMALLER THAN LEFT. PUPILS GAZES TO THE LEFT AT TIMES AT TIMES GAZES TO THE RIGHT. PT IS FLACCID. PT IS NOT ON ANY SEDATION AT THIS TIME. 0800-PT'S EX- AT BEDSIDE, UPDATED HIM OF PT'S STATUS. 0835-PT'S SISTER CALLED FOR UPDATES.
--- NOTE | 2018-09-09 10:49 | NUR ---
DR. MONTELONGO AT BEDSIDE. UPDATED HIM OF PT'S STATUS.
--- NOTE | 2018-09-09 14:51 | NUR ---
NEURO REASSESSMENT: PT IS OPENING HER EYES WITHOUT BEING ASKED. WHEN NAME IS CALLED AND ASKED TO OPEN EYES, PT IS NOT OPENING EYES. NOT FOLLOWING COMMANDS. PUPILS ARE MORE REACTIVE THIS TIME THAN INITIAL ASSESSMENT. PUPILS BOTH GAZING TO THE RIGHT. CORNEAL REFLEX, COUGH REFLEX, STILL NO GAG REFLEX. PT IS BREATHING 3-10 TIMES OVER THE SET BREATH.
--- NOTE | 2018-09-09 18:06 | NUR ---
SHIFT SUMMARY: PT IS STILL INTUBATED AND VENTED. PT IS NOT ON ANY SEDATION. DR. MONTELONGO IS AGREEING TO NOT SEDATE PT. STILL WAITING FOR DR. RUEDA TO TALK TO PT'S FAMILY REGARDING EEG RESULT. NO CHANGES IN NEURO STATUS. PT IS STILL UNRESPONSIVE. FAMILY AT BEDSIDE. STILL ON AMIODARONE 0.5 MG/MIN.
--- NOTE | 2018-09-09 18:54 | NUR ---
DR. RUEDA CALLED, UPDATED HIM OF PT'S STATUS. HE STATED THAT HE WILL BE HERE IN HALF AN HOUR. CALLED EMILIANO, PT'S DAUGHTER, AFTER TALKING TO DR. RUEDA. INFORMED HER ABOUT THE TIME DR. RUEDA ARRIVAL AND PLAN TO CALL HER AFTER HE ASSESS THE PATIENT.
--- NOTE | 2018-09-09 20:47 | NUR ---
PT INTUBATED. NO SEDATION. PT IS FLACCID T/O. NO SPONT. MOVEMENT. PUPILS ARE EQUAL SIZE BUT THE L IS JUST SLIGHTLY SLUGGISH COMPARED TO R. L GAZE AND EYE'S DO WANDER BACK AND FORTH SLIGHTLY. TF REMAINS AT 10ML/HR, RESIDUAL WAS 120ML OF BILE COLORED THAT WAS REFED. AFIB AND ON AMIODORONE GTT AT 0.5MG/MIN. [facility] DIALYSIS IS IN THE ROOM STARTING RIGHT NOW. DR. RUEDA WAS IN TO SEE PT AND SPOKE WITH DAUGHTER OVER THE PHONE. SOUNDS LIKE IT WILL BE THE WEEKEND BEFORE SHE WILL BE ABLE TO GET BACK HERE.
[2018-09-10 04:15] LABS: Hemoglobin 9.8 g/dL (11.5-16.0); Mean Corpuscular HGB 29.6 pg (26.0-34.0); Mean Corpuscular HGB Conc 33.8 g/dL (31.5-36.5); Mean Corpuscular Volume 88 fL (80-100); NRBC ABSOLUTE 1.49 K/mm3 (0.00-0.02); NRBC Auto 7.3 /100 WBC (0.0-0.2); Platelet Count 90 K/mm3 (150-400); RDW Coefficient Variation 16.3 % (11.7-14.2); RDW Standard Deviation 51.9 fL (35.1-46.3); Red Blood Cell Count 3.31 M/mm3 (3.80-5.20); White Blood Cell Count 20.28 K/mm3 (4.00-11.30)
[2018-09-10 04:47] LABS: Mean Platelet Volume 13.1 fL (9.1-12.4)
[2018-09-10 04:59] LABS: BAND PERCENT MAN 8 % (0-8); BASOPHILS PERCENT MAN 0 % (0-2); EOSINOPHILS PERCENT MAN 0 % (0-6); LYMPHOCYTES ABSOLUTE MAN 1.21 K/mm3 (0.84-5.20); LYMPHOCYTES PERCENT MAN 6 % (21-46); METAMYELOCYTE PERCENT MAN 1 % (0-0); MONOCYTES PERCENT MAN 3 % (4-13); MYELOCYTE PERCENT MAN 2 % (0-0); NEUTROPHILS ABSOLUTE MAN 17.84 K/mm3 (1.96-9.15); SEG NEUTROPHILS PERCENT MAN 80 % (41-73); TOTAL CELLS COUNTED 100
[2018-09-10 05:05] LABS: Albumin, Blood 1.7 g/dL (3.4-5.0); Anion Gap 15 mmol/L (6-16); Blood Urea Nitrogen 124 mg/dL (8-24); Bun/Creatinine Ratio 44.1 (12.0-20.0); CO2, Blood 25 mmol/L (21-32); Calcium, Blood 7.5 mg/dL (8.5-10.1); Chloride, Blood 90 mmol/L (98-108); Creatinine, Blood 2.81 mg/dL (0.40-1.00); Glomerular Filtration Rate 18 (60-); Glucose, Blood 168 mg/dL (70-99); Magnesium, Blood 2.8 mg/dL (1.6-2.4); Phosphorus, Blood 7.8 mg/dL (2.5-4.9); Potassium, Blood 4.8 mmol/L (3.5-5.5); Sodium, Blood 130 mmol/L (136-145)
--- NOTE | 2018-09-10 06:10 | NUR ---
SUMMARY PT INTUBATED. NO SEDATION. NO SPONTANEOUS MOVEMENT OR RESPONSE TO NOXIOUS STIMULI. PUPILS EQUAL IN SIZE BUT L ONE IS SLIGHTLY SLUGGISH AND PUPIL SIZE BOUNCES WHEN BEING ASSESSES. REMAINS IN AFIB ON AMIODORONE GTT AT 0.5MG/MIN. KEPT TF AT 10ML/HR ALL NIGHT. RESIDUALS WERE 75-120ML. MINIMAL URINE OUTPUT BUT DID GET DIALYSIS LAST NIGHT. EDEMA HAS IMPROVED.
--- NOTE | 2018-09-10 08:00 | NUR ---
ASSUMED CARE OF PT. PT IS UNRESPONSIVE. PT'S L EYE LID IS OPENING INVOLUNTARILY. PUPILS ARE CONSTANTLY MOVING FROM ONE SIDE TO THE OTHER. PT IS FLACCID. NOT FOLLOWING COMMANDS. CORNEAL & COUGH REFLEX PRESENT, NO GAG, NO SWALLOWING AND NO BABINSKI REFLEX NOTED.
--- NOTE | 2018-09-10 09:10 | NUR ---
PT SEEN BY DR MONTELONGO. HE ASLO TALKED TO THE EX- REGARDING PT'S CONDITION.
--- NOTE | 2018-09-10 09:30 | NUR ---
DIALYSIS AT THIS TIME
--- NOTE | 2018-09-10 17:06 | NUR ---
DR. MONTELONGO CAME BY TO CHECK ON PATIENT. UPDATED HIM OF PT'S STATUS.
--- NOTE | 2018-09-10 17:36 | NUR ---
SHIFT SUMMARY: PT IS STILL ON AMIODARONE DRIP @ 0.5MG/MIN. NEURO ASSESSMENT HAS NOT CHANGED FROM THIS MORNING'S INITIAL ASSESSMENT. PT HAD HEMODIALYSIS TODAY. PT STILL UNRESPONSIVE OVERBREATHING THE VENT AT TIMES. PT HAS HAD NO SEDATION FOR ALMOST 48HRS NOW.
--- NOTE | 2018-09-10 19:15 | NUR ---
[place] of Care: Patient intubated, ventilator to AC 30/300/15/50%, O2-94-96%. Patient off of sedation for approx 48hr and remains unresponsive. Pupils equal and reactive, but patient has occasional rt to lt gaze. No corneal, gag, or plantar reflex. No response to noxious stimuli, no movement of extremities. TF at 10ml/hr, 30ml H2O flush q4hr, will assess residual q4hr. Amiodarone gtt at 0,5mg/hr. PICC line patent and intact, plan to change dressing this shift. Faustin cath patent and intact, but very minimal output of yellow urine noted. Rectal tube patent and intact, draining small amount of loose brown stool. Will continue to monitor for pain, comfort, safety.
[2018-09-11 05:33] LABS: Hematocrit 27.8 % (33.0-51.0); Hemoglobin 9.2 g/dL (11.5-16.0); Mean Corpuscular HGB 29.3 pg (26.0-34.0); Mean Corpuscular HGB Conc 33.1 g/dL (31.5-36.5); Mean Corpuscular Volume 89 fL (80-100); NRBC ABSOLUTE 2.21 K/mm3 (0.00-0.02); NRBC Auto 11.3 /100 WBC (0.0-0.2); Platelet Count 98 K/mm3 (150-400); RDW Coefficient Variation 16.4 % (11.7-14.2); RDW Standard Deviation 53.3 fL (35.1-46.3); Red Blood Cell Count 3.14 M/mm3 (3.80-5.20); White Blood Cell Count 19.53 K/mm3 (4.00-11.30)
[2018-09-11 05:49] LABS: Mean Platelet Volume 12.8 fL (9.1-12.4)
[2018-09-11 05:53] LABS: BAND PERCENT MAN 13 % (0-8); BASOPHILS PERCENT MAN 0 % (0-2); EOSINOPHILS PERCENT MAN 0 % (0-6); LYMPHOCYTES ABSOLUTE MAN 0.58 K/mm3 (0.84-5.20); LYMPHOCYTES PERCENT MAN 3 % (21-46); MONOCYTES ABSOLUTE MAN 0.19 K/mm3 (0.16-1.47); MONOCYTES PERCENT MAN 1 % (4-13); NEUTROPHILS ABSOLUTE MAN 18.74 K/mm3 (1.96-9.15); SEG NEUTROPHILS PERCENT MAN 83 % (41-73); TOTAL CELLS COUNTED 100
[2018-09-11 06:06] LABS: Albumin, Blood 1.7 g/dL (3.4-5.0); Anion Gap 14 mmol/L (6-16); Blood Urea Nitrogen 122 mg/dL (8-24); Bun/Creatinine Ratio 44.4 (12.0-20.0); CO2, Blood 23 mmol/L (21-32); Calcium, Blood 7.5 mg/dL (8.5-10.1); Chloride, Blood 92 mmol/L (98-108); Creatinine, Blood 2.75 mg/dL (0.40-1.00); Glomerular Filtration Rate 18 (60-); Glucose, Blood 152 mg/dL (70-99); Magnesium, Blood 2.8 mg/dL (1.6-2.4); Phosphorus, Blood 7.8 mg/dL (2.5-4.9); Potassium, Blood 4.7 mmol/L (3.5-5.5); Sodium, Blood 129 mmol/L (136-145)
--- NOTE | 2018-09-11 06:25 | NUR ---
Shift Summary: No significant changes throughout shift. Remains unresponsive, no gag, corneal, or plantar reflex. Pupils remain equal and reactive. Continues on AC 30/300/15/45%, O294-98%. No s/s of pain or discomfort. Very scant amount of clear yellow urine output noted in drainage tube throughout shift. Also very scant amount of loose brown stool noted in rectal tube. TF residuals 170, 210, 150ml, prn Reglan given x1 after 210ml residual noted. Will continue to monitor until report to day shift RN.
--- NOTE | 2018-09-11 07:30 | NUR ---
ASSUMED CARE THIS AM. PT. REMAINS INTUBATED WITH NO SEDATION.AC 30, TV 300, 45%, PEEP 15. NO RESTRAINTS IN PLACE. NO SPONT MOVEMENT NOTED TO EXTREM. GRIMACE WITH REPOSITIONING AND ORAL CARE BUT NO GAG NOTED. PUPILS REACTIVE TO LIGHT AND EQUAL HOWEVER GAZE LEFT NOTED. SOFT CAST REMAINS TO LEFT LEG. DISTAL TOES WARM WITH PEDAL PULSES NOTED. PT. HAS TEMP ACKERMAN IN PLACE DRAINING TO GRAVITY. PT HAS FLEXISEAL IN PLACE DRAINING DARK BROWN LIQUID STOOL. PT. HAS PICC LINE TO RIGHT UPPER ARM, AND TEMP DIALYSIS CATHETER TO LEFT GROIN. PT. REMAINS ON AMIO GTT AT 0.5MG/MIN. PT. VSS AT THIS TIME.
--- NOTE | 2018-09-11 12:30 | NUR ---
PT REPOSITIONED FOR COMFORT RED TINGED SPUTUM WITH ORAL CARE. NO ACUTE CHANGES.
--- NOTE | 2018-09-11 13:15 | NUR ---
dialysis nurse at bedside.
--- NOTE | 2018-09-11 17:38 | NUR ---
SHIFT SUMMARY PT. REMAINS DROWSY BUT AWAKENS TO VERBAL STIMULI. REMAINS ON VENT AT THIS TIME WITH PLANS TO EXTUBATE TOMORROW. ACKERMAN REMAINS IN PLACE DRAINING TO GRAVITY, ONE DOSE OF LASIX GIVEN THIS SHIFT. TUBE FEED STARTED THIS PM AT 10ML/HR. PT. ULTRASOUND SCREENING POSITIVE FOR DVT TO BILAT UE. FAMILY REMAINS AT BEDSIDE T/O DAY. VSS. REPORT TO ONCOMING RN
--- NOTE | 2018-09-11 17:43 | NUR ---
SHIFT SUMMARY PT. REMAINS INTUBATED. NO ACUTE CHANGES T/O SHIFT. VSS. REPORT TO ONCOMING RN.
--- NOTE | 2018-09-11 19:15 | NUR ---
ASSUMING CARE OF PT AT THIS TIME. PT REPORT RECEIVED AT BEDSIDE WITH OFFGOING NURSE, DELL KRISHNAMURTHY. PT LAYING IN BED, INTUBATED, UNRESPONSIVE UPON ENTERING THE ROOM. VS STABLE - SEE VS FS. PT DOES NOT APPEAR TO BE IN DISTRESS AT THIS TIME. WILL REVIEW PLAN OF CARE.
--- NOTE | 2018-09-11 19:30 | NUR ---
ASSESSMENT PT UNRESPONSIVE, NO OPENING OF EYES, EYES GAZE MIDLINE, SLUGGISH PUPIL RESPONSES, NO GAG WITH ORAL CARE, OCC FACIAL GRIMACING WITH ORAL CARE, NOT FOLLOWING COMMANDS, NOT NODDING HEAD Y/N TO QUESTIONS. ABSENT SENSATION RESPONSE. NO SPONT MOVEMENT OF EXTREMETIES. NO S/SX OF PAIN/DISCOFMORT NOTED EXCEPT OCC FACIAL GRIMACING WITH ORAL CARE. LUNGS COARSE T/O, DIMINISHED LOWER LOBES. VENT SETTINGS: AC 30, TV 300, PEEP 12, FIO2 45%. OXY SAT 88% TO 91%. RR 30'S. AFEBRILE. AFIB. HR 90'S. BP STABLE - SEE VS FS. AMIODARONE DRIP AT O.5 MG/MIN. STRONG PULSES EXCEPT FAINT L TIBIAL PULSE. DIFFICULT TO ASSESS L TIB PULSE D/T SOFT CAST. EDEMA NOTED. WARM, PINK SKIN. HYPOATIVE BT X4 QUADRANTS. ABD SOFT, NONTENDER (NO FACIAL GRIMACING WITH PALPATION), MILD DIST. OG IN PLACE. TF: PIVOT 1.5 @ 10 ML/HR AND 30 ML FLUSH Q4 HR. RESIDUAL 140 ML - REINFUSED TF. RECTAL TUBE: DARK BROWN LIQUID STOOL NOTED. F/C: YELLOW URINE WITH SEDIMENT. PICC GUSTAVO. NS TKO AT 10 ML/HR. SECOND NS TKO ON STANDBY. HD CATH TO [facility].
[2018-09-12 03:28] LABS: BASOPHILS ABSOLUTE AUTO 0.06 K/mm3 (0.00-0.23); BASOPHILS PERCENT AUTO 0 % (0-2); Hematocrit 26.6 % (33.0-51.0); Hemoglobin 8.8 g/dL (11.5-16.0); Mean Corpuscular HGB 29.7 pg (26.0-34.0); Mean Corpuscular HGB Conc 33.1 g/dL (31.5-36.5); Mean Corpuscular Volume 90 fL (80-100); Mean Platelet Volume 12.5 fL (9.1-12.4); NRBC ABSOLUTE 1.74 K/mm3 (0.00-0.02); NRBC Auto 8.5 /100 WBC (0.0-0.2); Platelet Count 85 K/mm3 (150-400); RDW Coefficient Variation 16.3 % (11.7-14.2); RDW Standard Deviation 53.5 fL (35.1-46.3); Red Blood Cell Count 2.96 M/mm3 (3.80-5.20); White Blood Cell Count 20.46 K/mm3 (4.00-11.30)
[2018-09-12 03:31] LABS: EOSINOPHILS PERCENT AUTO 0 % (0-6); IMMATURE GRAN ABSOLUTE AUTO 0.22 K/mm3 (0.00-0.10); IMMATURE GRAN PERCENT AUTO 1 % (0-1); LYMPHOCYTES ABSOLUTE AUTO 0.25 K/mm3 (0.84-5.20); LYMPHOCYTES PERCENT AUTO 1 % (21-46); MONOCYTES ABSOLUTE AUTO 0.15 K/mm3 (0.16-1.47); MONOCYTES PERCENT AUTO 1 % (4-13); NEUTROPHILS ABSOLUTE AUTO 19.78 K/mm3 (1.96-9.15); NEUTROPHILS PERCENT AUTO 97 % (41-73)
[2018-09-12 03:43] LABS: Albumin, Blood 1.8 g/dL (3.4-5.0); Anion Gap 14 mmol/L (6-16); Blood Urea Nitrogen 121 mg/dL (8-24); Bun/Creatinine Ratio 45.7 (12.0-20.0); CO2, Blood 24 mmol/L (21-32); Calcium, Blood 7.7 mg/dL (8.5-10.1); Chloride, Blood 92 mmol/L (98-108); Creatinine, Blood 2.65 mg/dL (0.40-1.00); Glomerular Filtration Rate 19 (60-); Glucose, Blood 116 mg/dL (70-99); Magnesium, Blood 2.8 mg/dL (1.6-2.4); Potassium, Blood 4.5 mmol/L (3.5-5.5); Sodium, Blood 130 mmol/L (136-145)
--- NOTE | 2018-09-12 04:29 | NUR ---
SHIFT ASSESSMENT NO ACUTE CHANGES NOTED T/O SHIFT. PT UNRESPONSIVE, NO OPENING OF EYES, EYES GAZE MIDLINE, SLUGGISH PUPIL RESPONSES, NO GAG WITH ORAL CARE, OCC FACIAL GRIMACING WITH ORAL CARE, NOT FOLLOWING COMMANDS, NOT NODDING HEAD Y/N TO QUESTIONS. OCC OPENING MOUTH WIDER AROUND ETT AND CLOSES MOUTH BACK AROUND ETT. ABSENT SENSATION RESPONSE. NO SPONT MOVEMENT OF EXTREMETIES. NO S/SX OF PAIN/DISCOMFORT NOTED EXCEPT OCC FACIAL GRIMACING WITH ORAL CARE. LUNGS SLIGHTLY CORASE T/O, DIMINISHED LOWER LOBES. VENT SETTINGS: AC 30, TV 300, PEEP 12, FIO2 50%. CONT TO TITRATE FIO2 TO MAINTAIN SPO2 88% AND GREATER. OCC OXY SAT <87% POST REPOSITIONING PT IN BED. AFEBRILE. HR 90'S TO 110'S. BP STABLE - SEE VS FS. AMDIODARONE DRIP AT 0.5 MG/MIN. STRONG PULSES EXCEPT FAINT L TIBIAL PULSE. DIFFICULT TO ASSESS L TIB PULSE D/T SOFT CAST. EDEMA NOTED. WARM, PINK SKIN. HYPOACTIVE BT X4 QUADRANTS. ABD SOFT, NONTENDER (NO FACIAL GRIMACING WITH PALPATION), MILD DIST. OG IN PLACE. TF: PIVOT 1.5 @ 10 ML/HR AND 30 ML FLUSH Q4 HR. RESIDUAL REMAINED >100ML. RECTAL TUBE: DARK BROWN LIQUID STOOL NOTED. F/C: YELLOW URINE WITH SEDIMENT. MINIMAL UO. PICC GUSTAVO. NS TKO X2 ON STANDBY. HD CATH TO [facility]. AM LABS COMPLETED. WAITING FOR GIN FEEDER TO COMPLETE AM CHEST XRAY. WILL CONT TO MONITOR PT AND WILL PROVIDE BEDSIDE REPORT TO ONCOMING NURSE THIS AM.
--- NOTE | 2018-09-12 07:53 | NUR ---
DIALYSIS DISCUSSED DOING DIALYSIS ON PT WITH ICU STAFF. TOLD THAT SHE IS GOING HOSIPICE TODAY OR TOMORROW PER FAMILY. DAUGHTER IS ARRIVING TODAY OR TOMORROW. SHE HAS ALREADY MADE ARRANGEMENT AND DOESN'T WANT TO CONTINUE ANYTHING EXCEPT WHAT WILL KEEP HER ALIVE FOR THEM SAY GOOD BYE TO HER.
--- NOTE | 2018-09-12 07:55 | NUR ---
ASSUMED CARE THIS AM PT. REMAINS UNRESPONSIVE ON VENT AT THIS TIME. DOES NOT WITHDRAW FROM PAINFUL STIMULI. NO SPONT MOVEMENT NOTED TO EXTREMITIES. NO SEDATING MEDICATIONS. PT CONTINUES ON AC 30, TV 300, PEEP 12, 55%. PT. VSS THIS AM. REMAINS ON AMIO GTT AT 0.5MG/MIN. PT. HR 90S- LOW 100S. REMAINS IN AFIB. PT. CONTINUES WITH TF THIS AM AT 10ML/HR, PIVIOT 1.5 WITH RESIDUAL OF 200ML REINSTILLED THIS AM. NADN. AWAITING FAMILY TO WITHDRAW CARE.
--- NOTE | 2018-09-12 09:13 | NUR ---
PT AT BEDSIDE TEARFUL. ASKING THIS RN ABOUT AFFORDABLE OPTIONS FOR CREMATION. PROVIDED PT WITH LIST FROM [facility] WITH OPTIONS OF LOCATIONS ALONG WITH PRICES. PT STATES "WE KNOW SHE ISNT THERE ANYMORE". PT REPORTS PLANS OF FAMILY COMING TOMORROW TO "SAY GOOD BYE THEN WE WILL UNPLUG HER". REPORTS PLANS IN [place].
--- NOTE | 2018-09-12 15:46 | NUR ---
DISCUSSION WITH PT REGARDING DIALYSIS TODAY DISCUSSED PT LOW BP DURING DIALYSIS YESTERDAY AND THE NEED TO RESTART MEDICATIONS(LEVOPHED) TO INCREASE PT BP DURING DIALYSIS. PT STATES "NO JUST LEAVE HER LIKE SHE IS, WE ARE SAYING GOOD BYE TOMORROW AND ARE PULLING THE PLUG ON FRIDAY SO I JUST WANT HER TO STAY LIKE SHE IS". PASTE THINNER NOTIFIED. DR. MONTELONGO NOTIFIED WELL.
--- NOTE | 2018-09-12 17:31 | NUR ---
SHIFT SUMMARY PT. REMAINS OFF SEDATION AND INTUBATED AT THIS TIME. NO SPONT MOVEMENT NOTED T/O SHIFT. NO CHANGES IN NEURO ASSESSMENT FROM THIS AM. PT. OCCASIONALLY WOUND DESATURATE TO 86% SPO2 WHEN REPOSITIONED AND WOULD REQUIRE AN INCREASE IN FIO2 TO RECOVER. PT. IN TODAY- REQUESTED NO DIALYSIS IF IT WOULD REQUIRE ADDITIONAL MEDICATIONS (PRESSORS) TO KEEP PT STABLE. PLAN CONTINUES FOR PT FAMILY TO COME TOMORROW TO "SAY GOOD BYE" PER PT . PT. VSS T/O SHIFT REPORT TO ONCOMING RN.
--- NOTE | 2018-09-12 19:00 | NUR ---
ASSUMING CARE OF PT AT THIS TIEM. PT REPORT RECEIVED AT BEDSIDE WITH OFFGOING NURSE, DELL KRISHNAMURTHY. PT LAYING IN BED, INTUBATED, UNRESPONSIVE UPON ENTERING THE ROOM. VS STABLE - SEE VS FS. PT DOES NOT APPEAR TO BE IN DISTRESS AT THSI TIME. WILL REIVIEW PLAN OF CARE.
--- NOTE | 2018-09-12 19:15 | NUR ---
ASSESSMENT PT UNRESPONSIVE, NO OPENING OF EYES, EYES GAZE MIDLINE, SLUGGISH PUPIL RESPONSES, NO GAG WITH ORAL CARE, OCC FACIAL GRIMACING WITH ORAL CARE, NOT FOLLOWING COMMADNS, NOT NODDING HEAD Y/N TO QUESTIONS. OCC OPNEING MOUTH WIDER AROUND ETT AND CLOSES MOUTH BACK AROUND ETT. ABSENT SENSATION RESPONSE. NO SPONT MOVEMENT OF EXTREMETIES. NO S/SX OF PAIN/DISCOMFORT NOTED EXCEPT OCC FACIAL GRIMACING WITH ORAL CARE. UPPER LOBES CLEAR, SLIGHTLY COARSE MIDDLE AND LOWER LOBES, DIMINIHSED LOWER LOBES. VENT SETTINGS: AC 30, TV 300, PEEP 12, FIO2 65%. OXY SAT >88%. RR 30'S. NO SPUTUM SUCTION VIA ETT. TEMP 99.5 - REMOVED BLANKETS, TURNED DOWN TEMP IN ROOM. AFEBRILE. AFIB. HR 90'S. BP STABLE - SEE VS FS. MAP >60. AMIODARONE DRIP AT 0.5 MG/MIN. STRONG PULSES EXCEPT FAINT L TIBIAL PULSE. DIFFICULT TO ASSESS L TIBIAL PULSE D/T SOFT CAST. EDEMA NOTED. WARM, PINK SKIN. HYPOACTIVE BT X4 QUADRANTS. ABD SOFT, NONTENDER (NO FACIAL GRIMACING WITH PALPATION), MILD DIST. OG IN PLACE. TF: PIVOT 1.5 @ 10 ML/HR AND 30 ML FLUSH Q4 HR. RESIDUAL 170 ML - REINSTILLED TF. RECTAL TUBE: DARK BROWL LIQUID STOOL NOTED. F/C: YELLOW URINE WITH SEDIMENT. MINIMAL UO. NO HD COMPLETED THIS AM. PER REPORT FROM OFFGOING NURSE - PT'S REFUSED HD THIS AM D/T REQUIRING A VASOPRESSOR FOR HYPOTENSION TO COMPLETE HD. PER REPORT FROM OFFGOING NURSE - PT'S REFUSED VASOPRESSORS AND PT'S IS PLANNING FOR EXTUBATION AND COMFORT CARE MEASURES TOMORROW OR FRIDAY. PICC GUSTAVO. NS TKO X2 ON STANDBY. HD CATH TO [facility].
--- NOTE | 2018-09-12 20:45 | NUR ---
DR. MONTELONGO TEMP 99.9 - FAN ON, BLANKETS OFF, ROOM TEMP DOWN. SBP 80'S. MAP <60. HR 100'S. AFIB. VENT SETTINGS: AC 30, TV 300, PEEP 12, FIO2 80%. INCREASED FIO2 TO 100% FOR APPROXIMATELY 20 MINUTES POST REPOSITIONING THE PT AT 2000 D/T OXY SAT <88%. OXY SAT CURRENTLY AT 90% WHILE ON VENT SETTINGS: AC 30, TV 300, PEEP 12, FIO2 80%. CALLED DR. MONTELONGO AT THIS TIME. UPDATED DR. MONTELONGO OF PT'S CONDITION AND VS (SEE VS FS). DR. MONTELONGO ORDERED 1L NS BOLUS FOR HYPOTENSION. BEYOND THE 1L NS BOLUS, DR. MONTELONGO DOES NOT WANT TO ORDER ADDITIONAL BOLUSES OR VASOPRESSORS. DR. MONTELONGO UNDERSTANDS 'S WISHES REGARDING NO HD AND VASOPRESSORS. WAITING FOR VERIFICATION OF MEDICATION FROM PHARMACY AT THIS TIME. DR. MONTELONGO INSTRUCTED TO MAINTAIN PEEP 12 AND TO NOT INCREASE PEEP >12. DR. MONTELONGO STATED THAT INCREASING PEEP WOULD CAUSE FURTHER HYPOTENSION. DR. MONTELONGO INSTRUCTED TO CONT TO TITRATE FIO2 TO MAX OF 100%. DR. MONTELONGO IS OKAY IF OXY SAT <88% WHILE ON VENT SETTINGS: AC 30, TV 300, PEEP 12, FIO2 100%.
--- NOTE | 2018-09-12 21:15 | NUR ---
PT'S (KI) / PT CARE 1L NS BOLUS INFUSING AT THIS TIME. UPDATED KI, PT'S , OF PT'S STATUS AND VS (SEE VS FS). KI REQUESTED TO CONT WITH INFUSING 1L NS BOLUS AND TITRATING OXYGEN TO MAINTAIN SPO2. PER REQUEST FROM KI, THIS RN WILL PROVIDE FURTHER UPDATES TO KI IF PT'S STATUS WORSENS.
--- NOTE | 2018-09-12 22:44 | NUR ---
PT'S DAUGHTER (EMILIANO) / DR. MONTELONGO / DR. JEWELL PT'S DAUGHTER, EMILIANO, CALLED ICU AT APPROXIMATELY 2200 THIS SHIFT. PT'S DAUGHTER STATED THAT SHE IS THE NEXT OF KIN BECAUSE KI IS THE EX-. EMILIANO REQUESTS VASOPRESSORS TO MAINTAIN LIFE SUSTAINING CARE UNTIL DAUGHTER ARRIVES TO [facility] TOMORROW EVENING. EMILIANO STATED, "I WANT MY MOTHER TO STAY ALIVE UNTIL I CAN SAY GOODBYE TOMORROW". 1L NS BOLUS HAS FINISHED INFUSING. VENT SETTINGS: AC 30, TV 300, PEEP 12, FIO2 100%. OXY SAT 90%. PT REMAINS HYPOTENSIVE (SEE VS FS). CALLED DR. MONTELONGO AT APPROXIMATELY 2230. UPD[address] DR[address] MONTELONGO OF EMILIANO'S WISHES. DR. MONTELONGO IS AWARE THAT EMILIANO IS NEXT OF KIN. DR. MONTELONGO ORDERED LEVOPHED DRIOP, VASOPRESSIN DRIP, A NURSE NOTIFICATION TO START VASOPRESSIN DRIP ONCE LEVOPHED IS AT 10 MCG/MIN, A NURSE NOTIFICAION TO MAINTAIN MAP 60 AND GREATER, ALBUMIN 25G, AND A RT NOFICIATION TO INCREASE PEEP TO MAINTAIN SPO2 88% AND GREATER. DR. JEWELL AT BEDSIDE AT THIS TIME. UPDATED DR. JEWELL OF PT'S CONDITION, EMILIANO'S AND KI'S WISHES, VS (SEE VS FS), AND DR. MONTELONGO'S ORDERS. DR. JEWELL ORDERED ADDITIONAL ALBUMIN 25G X2 IF INDICATED TO MAINTAIN MAP 60 AND GREATER. WAITING FOR VERIFICATION OF MEDICATION FROM PHARMACY AT THIS TIME. WAITING FOR MEDICATIONS FROM PHARMACY AT THIS TIME.
--- NOTE | 2018-09-12 23:58 | NUR ---
PT CARE PT REMAINS UNRESPONSIVE, NO OPENING OF EYES, EYES GAZE MIDLINE, SLUGGISH PUPIL RESPONSES, NO GAG WITH ORAL CARE, OCC FACIAL GRIMACING WITH ORAL CARE, NOT FOLLOWING COMMANDS, NOT NODDING HEAD Y/N TO QUESTIONS. OCC OPENING MOUTH WIDER AROUND ETT AND CLOSES MOUTH BACK AROUND ETT. ABSENT SENSATION RESPONSES. NO SPONT MOVEMENT OF EXTREMETIES. NO S/SX OF PAIN/DISCOMFORT NOTED EXCEPT OCC FACIAL GRIMACING WITH ORAL CARE. SLIGHTLY COARSE T/O, DIMINISHED LOWER LOBES. VENT SETTINGS: AC 30, TV 300, PEEP 15, FIO2 100%. DELFIN, RT TITRATED PEEP 15 D/T OXY SAT <88%. WHILE ON VENT SETTINGS: AC 30, TV 300, PEEP 15, FIO2 100%, OXY SAT 86% TO 87%. RR 30'S. NO SPUTUM SUCTION VIA ETT. TEMP 99.1 - FAN ON, BLANKETS OFF, ROOM TEMP DOWN. AFIB. HR 90'S. LEVOPHED AT 6 MCG/MIN - WILL CONT TO TITRATE TO EFFECT. ALBUMIN INFUSING. BP CURRENTLY STABLE WITH LEVOPHED DRIP. AMIODARONE DRIP 0.5 MG/MIN. STRONG PULSES EXCEPT FAINT L TIBIAL PULSE. DIFFICULT TO ASSESS L TIBIAL PULSE D/T SOFT CAST. EDEMA NOTED. WARM, PINK SKIN. HYPOACTIVE BT X4 QUADRANTS. ABD SOFT, NONTENDER (NO FACIAL GRIMAICNG WITH PALPATION), MILD DIST. OG IN PALCE. TF: PIVOT 1.5 @ 10 ML/HR AND 30 ML FLUSH Q4 HR. RESIDUAL 200 ML - REINSTILLED TF. RECTAL TUBE: DARK BROWN LIQUID STOOL NOTED. F/C: YELLOW URINE WITH SEDIMENT. MINIMAL UO. PICC GUSTAVO. NS TKO X2 ON STANDBY. [facility] .
--- NOTE | 2018-09-13 01:00 | NUR ---
DR. MONTELONGO VENT SETTINGS: AC 30, TV 300, PEEP 15, FIO2 100%. OXY SAT <88%. RR 30'S. OCC DOUBLE STACKING OF BREATHS NOTED. CALLED DR. MONTELONGO AT THIS TIME. UPDATED DR. MONTELONGO OF PT'S STATUS AND VS (SEE VS FS). DR. MONTELONGO ORDERED NURSE NOTIFICATION STATING THAT SPO2 <88% IS OKAY AND ORDERED VECURONIUM BROMIDE PRN. WAITING FOR MEDICATION FROM PHARMACY AT THIS TIME.
--- NOTE | 2018-09-13 02:11 | NUR ---
SHIFT ASSESSMENT TIME OF AT 0144. PT REMAINED UNRESPONSIVE T/O SHIFT. ABSENT SENSATION RESPONSES. NO SPONT MOVEMENT OF EXTREMETIES. NO S/SX OF PAIN/DISCOMFORT NOTED EXCEPT OCC FACIAL GRIMACING WITH ORAL CARE. LUNGS SLIGHTLY COARSE T/O, DIMINISHED LOWER LOBES. VENT SETTINGS: AC 30, TV 300, PEEP 15, FIO2 100%. PT'S OXY SAT CONT TO DECREASE THIS AM (SEE VS FS). RR 30'S. VECURONIUM RESOVLED BREATH STACKING. NO SPUTUM SUCTION VIA ETT. AFEBRILE. AFIB. LEVOPHED TITRATED TO 20 MCG/MIN. ALBUMIN INFUSED. HR AND BP CONT TO DECREASE THIS AM (SEE VS FS). AMDIODARONE DRIP REMAINED AT 0.5 MG/MIN. PULSES BECAME FAINT. SKIN COOLER AND PALER T/O SHIFT. EDEMA NOTED. PT EXTUBATED BY DELFIN, RT POST MORTEM. HYPOACTIVE BT X4 QUADRANTS. ABD REMAINED SOFT, NONTENDER, MILD DIST. OG D/C POST MORTEM. TF D/C POST MORTEM. RECTAL TUBE REMAINS IN PLACE: DARK BROWN LIQUID STOOL NOTED. F/C: YELLOW URINE WITH SEDIMENT. F/C D/C. MINIMAL UO. PICC GUSTAVO PLACE. ALL DRIPS TURNED OFF POST MORTEM. HD CATH TO L [facility] REMAINS IN PLACE. EMMANUEL, CHARGE NURSE CALLED [facility] TO PROVIDE UPDATE OF PT'S TIME OF . EMILIANO IS DECIDING OF HOME AT THIS TIME.
--- NOTE | 2018-09-13 05:13 | NUR ---
Home- Daughter has changed her mind from using [facility] and pt. will be going to [facility].
== END 2018-09-13 05:55 | DRG 870 ==
LOC: ER 08:44 → ICUW 10:00
PROVIDERS: Emergency Medicine; Family Medicine; Internal Medicine; Internal Medicine Critical Care Medicine; Internal Medicine Nephrology; Internal Medicine Pulmonary Disease; ADMIT Family Medicine
PROC: 0BH17EZ Insertion of Endotracheal Airway into Trachea, Via Natural or Artificial Opening (ICD-10-PCS; principal; 2018-08-31)
PROC: 5A1955Z Respiratory Ventilation, Greater than 96 Consecutive Hours (ICD-10-PCS; 2018-08-31)
PROC: 02HV33Z Insertion of Infusion Device into Superior Vena Cava, Percutaneous Approach (ICD-10-PCS; 2018-08-31)
PROC: 3E033XZ Introduction of Vasopressor into Peripheral Vein, Percutaneous Approach (ICD-10-PCS; 2018-08-31)
PROC: 0JHM3XZ Insertion of Tunneled Vascular Access Device into Left Upper Leg Subcutaneous Tissue and Fascia, Percutaneous Approach (ICD-10-PCS; 2018-09-05)
PROC: 06HN33Z Insertion of Infusion Device into Left Femoral Vein, Percutaneous Approach (ICD-10-PCS; 2018-09-05)
PROC: 30233N1 Transfusion of Nonautologous Red Blood Cells into Peripheral Vein, Percutaneous Approach (ICD-10-PCS; 2018-09-05)
PROC: 5A1D70Z Performance of Urinary Filtration, Intermittent, Less than 6 Hours Per Day (ICD-10-PCS; 2018-09-05)
PROC: 5A1D70Z Performance of Urinary Filtration, Intermittent, Less than 6 Hours Per Day (ICD-10-PCS; 2018-09-06)
PROC: 5A1D70Z Performance of Urinary Filtration, Intermittent, Less than 6 Hours Per Day (ICD-10-PCS; 2018-09-07)
PROC: 5A1D70Z Performance of Urinary Filtration, Intermittent, Less than 6 Hours Per Day (ICD-10-PCS; 2018-09-08)
PROC: 5A1D70Z Performance of Urinary Filtration, Intermittent, Less than 6 Hours Per Day (ICD-10-PCS; 2018-09-09)
PROC: 5A1D70Z Performance of Urinary Filtration, Intermittent, Less than 6 Hours Per Day (ICD-10-PCS; 2018-09-10)
DX: A41.01 Sepsis due to Methicillin susceptible Staphylococcus aureus (principal); J96.01 Acute respiratory failure with hypoxia; R65.21 Severe sepsis with septic shock; I21.4 Non-ST elevation (NSTEMI) myocardial infarction; J96.02 Acute respiratory failure with hypercapnia; N17.0 Acute kidney failure with tubular necrosis; R40.20 Unspecified coma; G92 Toxic encephalopathy; J10.00 Influenza due to other identified influenza virus with unspecified type of pneumonia; J15.8 Pneumonia due to other specified bacteria; D61.818 Other pancytopenia; E87.1 Hypo-osmolality and hyponatremia; A09 Infectious gastroenteritis and colitis, unspecified; E87.6 Hypokalemia; S82.302A Unspecified fracture of lower end of left tibia, initial encounter for closed fracture; S82.832D Other fracture of upper and lower end of left fibula, subsequent encounter for closed fracture with routine healing; I48.2 Chronic atrial fibrillation; Z79.01 Long term (current) use of anticoagulants; E83.42 Hypomagnesemia; I48.0 Paroxysmal atrial fibrillation; I95.9 Hypotension, unspecified; G89.4 Chronic pain syndrome
CPT/HCPCS: 29515; 31500; 31720; 36415; 36430; 36556; 36569; 36600; 36620; 51702; 70450; 71045; 73610; 76770; 80048; 80053; 80069; 80074; 80202; 81001; 82330; 82550; 82553; 82803; 82947; 83605; 83735; 83880; 84100; 84484; 84550; 85014; 85018; 85025; 85027; 85610; 85730; 86022; 86317; 86850; 86900; 86901; 86923; 87040; 87070; 87077; 87147; 87186; 87205; 87324; 87493; 87804; 93005; 93010; 93306; 93970; 94002; 94003; 94640; 94644; 94660; 94667; 94668; 95819; 96361-59; 96365-59; 96367-59; 96375-59; 99283-25; 99291-25; C1751; C1752; C1894; C9113; G0480; J0282; J0610; J0690; J0696; J0881; J1644; J1720; J1940; J1956; J2020; J2060; J2250; J2310; J2405; J2543; J2704; J2765; J3010; J3370; J3475; J3480; J7030; J7040; J7060; J7070; J7120; P9016; P9046